=== PATIENT | female | born 1965 | race Caucasian/White ===

== ENCOUNTER 2023-09-05 06:33 | Inpatient (IN) | payer OTHER, SELFPAY ==
[2023-09-05] VITALS (50 sets, daily range): BP systolic 46–144; BP diastolic 33–118; PULSE 2–112; BMI 36.1
--- NOTE | 2023-09-05 03:37 | ED.GENMED ---
History of Present Illness
General
Chief Complaint: Breathing Problem
Source: patient
Exam Limitations: none
Time Seen by Provider: 09/05/23 03:33
Nursing documentation reviewed up to this point in time: agreed with
History of Present Illness
History of Present Illness:
This is a 58-year-old woman who complains of several day history of shortness of breath, cough, progressive over the past several days to week. She does admit to some chest pressure, somewhat worse with coughing. Chest pressure comes and goes over
the past few days.
She called her PCP and on Wednesday, September 02 she was started on prednisone, Tessalon Perles and Z-Obi. Despite these medications shortness of breath has persisted, much worse tonight prompting ED visit.
Upon arrival to the ED patient is in significant respiratory distress, tachypneic, mildly cyanotic.
Room air pulse ox 87%.
Immediately placed on 100% nonrebreather mask.
Her only daily medication is levothyroxine.
She continues to smoke cigarettes.
Past History
Past History
ED Past Medical History: Hypothyroidism
Social History
Tobacco: Smoker
Personal:
Living: with family
Family History
Family History: Other (Noncontributory)
Phy Exam
Physical Exam
Physical Exam:
GENERAL: This is a 58-year-old woman who appears somewhat older than stated age, awake and alert, appears in significant respiratory distress, tachypneic, able to speak in only few word sentences.
EYE: anicteric
NECK: Supple, nontender, no meningismus, no significant adenopathy. Moderate JVD.
ENT: oral mucosa is moist. No rhinorrhea.
CARDIAC: Irregularly irregular, tachycardic.
LUNGS: Significant respiratory distress with tachypnea, moderately decreased breath sounds throughout with fine expiratory wheezes bilaterally.
ABDOMEN: Rotund, soft, nondistended, without focal tenderness, normoactive BS.
NEUROLOGICAL: Alert and oriented x3, no focal neuro deficits.
SKIN: Cool and minimally diaphoretic, mild pallor with mild to moderate peripheral cyanosis, skin intact. No rash.
MUSCULOSKELETAL: No C/C/E. peripheral pulses are full and equal b/l. No palpable tenderness.
PSYCH: Moderately anxious related to shortness of breath, cooperative.
Scores
Heart Failure Risk
Heart Failure Risk Score: Yes
History of Stroke or TIA: No
History of intubation for respiratory distress: No
Heart rate on ED arrival >/= 110: Yes
SaO2 <90% on arrival on room air: Yes
HR >/=110 during 3min walk test (or too ill to perform test): Yes
ECG has acute ischemic changes: Yes
Urea >/=12mmol/L (BUN 33.6mg/dL): No
Serum CO2>/=35mmol/L: No
Troponin I or T elevated to DC Level (0.4mg/dL): No
NT-proBNP >/=5,000ng/L (5,000pg/ml): Yes
HF Risk Score: 6
Admission Status: VERY HIGH RISK 55.3% Consider admission to hospital
Course
Orders/Labs/Results
Orders:
Orders
09/05/23 03:34
Electrocardiogram (*1) Urgent
Reason for Study: Shortness of Breath
EKG- Treatment ONCE
CR Chest Portable - 1 View Urgent
Comment:
Reason For Exam: sob, hypoxia
Reason Study Needs to be Portable: Patient Unstable
09/05/23 03:49
Furosemide [Lasix] 80 mg IV NOW STA
Nitroglycerin 100 mg/250 ml [Nitroglycerin Premix] 100 mg in 250 ml IV NOW
Initial dose in mcg/min, then titrate:: 5
Titrate to keep:: SBP < 160 mmHg
Titrate by mcg/min:: 5 mcg/min, may increase by 10 mcg/min if dose > 20 mcg/min
Frequency of titrations (minutes):: every 3-5 minutes
Maximum dose in mcg/min:: 200
Begin to taper infusion when:: Remained at goal for 2hrs
Taper by mcg/min:: 5 mcg/min
Frequency of taper (minutes) if patient maintains goal:: 30
Taper to off?: Yes
If infusion off & no longer maintaining goal:: Contact Provider
09/05/23 03:56
Acetaminophen Urgent
Comment: ADD ON
Complete Blood Count/With Diff Urgent
Comprehensive Metabolic Panel Urgent
Glycohemoglobin (HgbA1c) Urgent
Lactic Acid Q4H
Comment: CANCEL 2nd LACTIC ACID IF 1st LACTIC ACID IS LESS THAN 2
Magnesium Urgent
NT-proBNP Urgent
PTT Urgent
TSH Reflex To Free T4 Urgent
Troponin I Urgent
09/05/23 04:05
ABG [Arterial Blood Gas] Urgent
%Oxygen/Room Air: 100% NRB
09/05/23 05:40
Admit/Transfer Patient As Directed
Co-Sign Provider:
Level of Care: Inpatient admission
Assign to:: IMU- Intermediate Care
Physician / Group: Hospitalist
Diagnosis: New Onset CHF
Reason for Hospitalization: Hypoxic respiratory failure
Expected length of stay greater than two midnights?: Yes
ELOS- Estimated Length of Stay in days: 2
I certify the patient meets the requirements for IP care: Yes
09/05/23 05:41
Code Status As Directed
Resuscitation Status: Full Code
09/05/23 05:45
Add On- LAB Stat
Tests Added?: Hemoglobin A1c
Add On- LAB Stat
Tests Added?: Magnesium level
09/05/23 05:50
Add On- LAB Stat
Tests Added?: acetaminophen level
09/05/23 07:45
Lactic Acid Q4H
Comment: CANCEL 2nd LACTIC ACID IF 1st LACTIC ACID IS LESS THAN 2
Abnormal Lab Results
09/05/23 09/05/23
03:56 04:05
WBC 19.7 H 10^3/uL
(4.8-10.8)
MCHC 32.6 L g/dL
(33.0-37.0)
RDW 14.6 H %
(11.5-14.5)
MPV 10.9 H fL
(7.4-10.4)
Abs Immat Gran (auto) 0.4 H 10^3/uL
(0-0.05)
Absolute Neuts (auto) 11.6 H 10^3/uL
(1.4-6.5)
Absolute Lymphs (auto) 6.3 H 10^3/uL
(1.2-3.4)
Absolute Monos (auto) 1.1 H 10^3/uL
(0.1-0.6)
Immature Gran % 2.1 H %
(0-0.5)
APTT 21.8 L Sec
(23.4-35.0)
pH 7.27 L
(7.35-7.45)
pCO2 44 H mmHg
(32-35)
pO2 157 H mmHg
(83-108)
HCO3 20.2 L mmol/L
(21-28)
ABG O2 Sat (Measured) 99.7 H %
(94-98)
Carbon Dioxide 19 L mmol/L
(22-30)
BUN 21 H mg/dl
(7-17)
Glucose 296 H mg/dl
(70-99)
Lactic Acid 4.6 H* mmol/L
(0.7-2.0)
AST 234 H U/L
(14-36)
ALT 128 H U/L
(0-35)
Acetaminophen < 10 L ug/ml
(10-30)
09/05/23 03:56
09/05/23 03:56
Vital Signs
Initial and Last Documented VS:
Initial Vital Signs
Pulse Resp BP Pulse Ox
154 36 144/111 82
09/05/23 03:32 09/05/23 03:32 09/05/23 03:32 09/05/23 03:32
Last Documented Vital Signs
Pulse Resp BP Pulse Ox
81 19 105/58 99
09/05/23 08:00 09/05/23 08:00 09/05/23 08:00 09/05/23 07:50
MDM/Problems Addressed
Differential Diagnosis Includes:
Patient presents with severe respiratory distress, cyanosis, hypoxia and immediately placed on 100% nonrebreather mask with prompt improvement in overall coloring, resolution of cyanosis but she continues with moderate tachypnea and increased work
of breathing.
Exam suspicious for acute CHF, other consideration is exacerbation of COPD, pneumonia, sepsis, ACS.
Nonrebreather mask transition to BiPAP with further improvement in respiratory distress and marked improvement in oxygenation.
Portable chest x-ray shows moderate cardiomegaly and generalized increased interstitial markings consistent with acute pulmonary edema.
She has been given an IV dose of Lasix and initiation of IV nitroglycerin for preload/afterload reduction.
Initial front desk monitor showed irregular irregular tachycardic rhythm consistent with atrial fibrillation with rapid ventricular response.
With improvement in oxygenation atrial fibrillation has spontaneously converted to sinus tachycardia.
Mild to moderate hypertension initially 144/111, hypertension is improving/normalized with improvement in respiratory distress.
EKG performed once stabilized shows sinus tachycardia, left bundle branch block. No old EKGs to compare.
Labs are pending.
Overall improving, has started to diurese.
Will admit to hospitalist service.
*Radiology
Radiology exam reviewed: preliminary read by ED provider (Chest x-ray shows cardiomegaly, interstitial edema consistent with CHF/pulmonary edema.)
*Pulse Oximetry
Patient hypoxic: yes
*EKG
Interpreted by ED Provider?: Yes
Interpretation: abnormal
Comparison EKG: no comparison EKG present
Rate: tachycardiac
Rhythm: sinus
Misenheimer: normal axis
QRS Pattern: left bundle branch block and poor R-wave progression
Ischemia: non-specific ST changes
*Documentation Designer Interpretation
Rate: tachycardiac
Interpretation: abnormal
Rhythm: a-fib
*Critical Care Note
Total Time (30-74mins, 75-104mins- exclusive of procedures): 45
comment:
Critical care statement: A total of 45 minutes of critical care time was provided for this patient. This includes management of unstable vital signs, evaluation of the patient at bedside, reviewing the patient's pertinent medical records, discussion
with consultants, review of old EKGs and review of pertinent medical records. This time with separate from time utilized to perform the aforementioned documented procedures
ED Attending Note
-
Portions of this chart may have been created with voice recognition software.� Occasional wrong word or��sound alike� substitutions may have occurred due to the inherent limitations of voice recognition software.
Discharge Plan
Departure
Patient Disposition: Admit
Date of Disposition: 09/05/23
Time of Disposition: 04:30
Admit to: IVU
Presentation/result/management discussed w/ accepting MD/DO: Hospitalist
Condition: Serious
Discharge Problem:
Acute respiratory failure with hypoxia and hypercapnia, Acute pulmonary edema, Paroxysmal atrial fibrillation with rapid ventricular response
Interventions
Interventions:
*Risk Screen - Suicide Last Done: 09/05/23 04:08
*General Assessment Last Done: 09/05/23 04:08
*Neglect/Abuse Screening Last Done: 09/05/23 04:08
ED- Fall Risk Assessment Last Done: 09/05/23 04:08
*ED COVID-19 Vaccine History Last Done: 09/05/23 04:08
ED- Cardiac Assessment Last Done: 09/05/23 04:08
ED- Pulmonary Assessment Last Done: 09/05/23 04:08
[2023-09-05] MEDS: LASIX 80 MG IV (04:01)
[2023-09-05] MEDS: NITROGLYCERIN PREMIX 250 IV (04:01)
[2023-09-05 04:07] LABS: % Basophils 0.5 % (0-2); % Eosinophils 0.9 % (0-6); % Immature Granulocytes 2.1 % (0-0.5); % Lymphocytes 32.1 % (20.5-51.1); % Monocytes 5.5 % (1.7-9.3); % Neutrophils 58.9 % (42.2-75.2); Absolute Basophils 0.1 10^3/uL (0-0.2); Absolute Eosinophils 0.2 10^3/uL (0-0.7); Absolute Immature Granulocytes 0.4 10^3/uL (0-0.05); Absolute Lymphocytes 6.3 10^3/uL (1.2-3.4); Absolute Monocytes 1.1 10^3/uL (0.1-0.6); Absolute Neutrophils 11.6 10^3/uL (1.4-6.5); Hematocrit 42.7 % (37.0-47.0); Hemoglobin 13.9 g/dL (12.0-16.0); Mean Corp Hgb Conc. 32.6 g/dL (33.0-37.0); Mean Corpuscular Hgb 30.4 pg (27.0-31.0); Mean Corpuscular Volume 93.4 fL (81.0-99.0); Mean Platelet Volume 10.9 fL (7.4-10.4); Nucleated Red Blood Cells % 0 %; Platelet Count 342 10^3/uL (130-400); Red Blood Cell Count 4.57 10^6/uL (4.20-5.40); Red Cell Dist. Width 14.6 % (11.5-14.5); White Blood Cell Count 19.7 10^3/uL (4.8-10.8)
[2023-09-05 04:16] LABS: B.E. -6.6 mmol/L; HCO3 20.2 mmol/L (21-28); O2 Saturation % 99.7 % (94-98); PCO2 44 mmHg (32-35); PO2 157 mmHg (83-108); pH 7.27 (7.35-7.45)
[2023-09-05 04:19] LABS: ALT (SGPT) 128 U/L (0-35); AST (SGOT) 234 U/L (14-36); Albumin 3.7 g/dl (3.5-5.0); Alkaline Phosphatase 111 U/L (38-126); Blood Urea Nitrogen 21 mg/dl (7-17); Calcium 8.7 mg/dl (8.4-10.2); Carbon Dioxide 19 mmol/L (22-30); Chloride 107 mmol/L (98-107); Estimated Creatinine Clearance 69 ml/min; Glucose 296 mg/dl (70-99); Potassium 3.9 mmol/L (3.5-5.1); Sodium 140 mmol/L (135-145); Total Bilirubin 0.6 mg/dl (0.2-1.3); Total Protein 6.7 g/dl (6.3-8.2); eGFR > 60.00
[2023-09-05 04:23] LABS: Lactic Acid 4.6 mmol/L (0.7-2.0)
[2023-09-05 04:32] LABS: NT-proBNP 8800 pg/ml; Troponin I 0.028 ng/ml
[2023-09-05 04:49] LABS: TSH Reflex To Free T4 1.84 uIU/ml (0.47-4.68)
[2023-09-05 04:58] LABS: APTT 21.8 Sec (23.4-35.0)
--- NOTE | 2023-09-05 05:16 | HPS.HSE ---
Family Physician
-
Family Physician: INTERVIEWE UNKNOWN - PT NOT
Chief Complaint
-
Shortness of breath
History of Present Illness
This is a 58-year-old female with only past medical history of hypothyroidism on Synthroid who presents to the emergency department with progressive shortness of breath that has been going on for weeks but rapidly worsened in the last few days.
She reported that she was seen in normal state of health up until about 2 months ago when she contracted COVID. Since then she has been having issues with her breathing. About 1 month ago she was diagnosed with COPD exacerbation and placed on
steroids. She did have improvement with steroid however symptoms began to deteriorate couple weeks ago. She reports dyspnea on exertion. She also reports having orthopnea and paroxysmal nocturnal dyspnea. She denied any lower extremity edema or
acute weight gain. Patient denies exertional chest pain. Denies palpitations, syncope, cold or heat intolerance. She reports mostly nonproductive cough which is unchanged from her baseline. She was started again on steroids at 40 mg 2 days ago
as well as azithromycin but had no improvement in her symptoms this time.
She was quite hypoxic and tachypneic on arrival in the emergency department with saturation in the low 80s on room air. Apparently came in with AFIB RVR with spontanous conversion to sinus tach. She was similarly placed placed on BiPAP. Initial
blood pressure was 144/111 with a pulse rate in the 110s. ECG shows sinus tachycardia at a rate of 120. She has a left atrial enlargement and nonspecific QRS prolongation. Initial troponin was 0.02. BNP was elevated at 8800. TSH was within
normal limits at 1.4. Chest x-ray shows reticular interstitial opacities bilaterally. Blood gas revealed pH of 7.27 pCO2 44. She had a white count of 19,000 stop chemistries were mostly unremarkable except for blood glucose of 296. Lactic acid
was elevated at 4.6. AST was elevated at 234 and ALT 128.
Medical History
Past Medical History
Past Medical History: Reports Hypothyroidism
Past Surgical History: Reports None
Social History
Tobacco: Smoker (/2 ppd)
Alcohol: None
Drug: None
Personal:
Living: With Family
Employment: Employed
Family History
Family History: Not pertinent
Allergies / Home Medications
Allergies reflects when Allergies were last updated in [employer].
Home Medications with original date entered in [employer]
Allergy/Medication List:
Allergies
Allergy/AdvReac Type Severity Reaction Status Date / Time
Penicillins Allergy Unknown Verified 09/05/23 03:37
Levothyroxine 175 mcg po daily
Review of Systems
-
History Source: Patient
Constitutional: Reports No Symptoms
EENT: Reports No Symptoms
Respiratory: Reports Cough and Trouble Breathing
Cardiac: Reports See HPI
Abdomen/GI: Reports No Symptoms
: Reports No Symptoms
Musculoskeletal: Reports No Symptoms
Skin: Reports No Symptoms
Neurological: Reports No Symptoms
Endocrine: Reports No Symptoms
Hematologic/Lymphatic: Reports No Symptoms
Psych: Reports No Symptoms
Physical Exam
Vital Signs
Vital Signs
Pulse Resp BP Pulse Ox
94 17 80/46 96
09/05/23 05:01 09/05/23 05:01 09/05/23 04:45 09/05/23 05:01
Physical Exam
General: Well Developed, Well Nourished, Respiratory Distress and Obese
HEENT: NormoCephalic, Moist mucous membranes, Atraumatic, PERRLA and Oxygen
Respiratory: Crackles (faint bibasilar crackles)
Cardiac: S1/S2 and Tachycardia
Breast: Deferred by me
GI: Soft, Non Tender, Non Distended and Normal Bowel Sounds
Rectal: Deferred by Provider
Genito-urinary: Clear Urine
Musculoskeletal: No Clubbing, No Cyanosis and No Edema
Skin: Warm and Dry
Neuro: AO x 3
Hematologic/Lymphatic: No Lymphadenopathy
Psych: Calm
Laboratory Results
-
09/05/23 03:56
09/05/23 03:56
Laboratory Results
APTT 21.8 Sec (23.4-35.0) L 09/05/23 03:56
pH 7.27 (7.35-7.45) L 09/05/23 04:05
pCO2 44 mmHg (32-35) H 09/05/23 04:05
pO2 157 mmHg (83-108) H 09/05/23 04:05
HCO3 20.2 mmol/L (21-28) L 09/05/23 04:05
Lactic Acid 4.6 mmol/L (0.7-2.0) H* 09/05/23 03:56
Total Bilirubin 0.6 mg/dl (0.2-1.3) 09/05/23 03:56
AST 234 U/L (14-36) H 09/05/23 03:56
ALT 128 U/L (0-35) H 09/05/23 03:56
Alkaline Phosphatase 111 U/L (38-126) 09/05/23 03:56
Troponin I 0.028 ng/ml 09/05/23 03:56
Data Reviewed
-
Diagnostic Radiology: Image Personally Visualized and interpreted
Medical Tests (Nuc Med, Echo, EKG etc): Image Personally Visualized and interpreted
Lab Data: Labs Reviewed by me
Impression/Plan
-
IMPRESSION:
PLAN:
1. Hypoxic respiratory failure -patient has history of tobacco use, refuses no diagnosis of COPD, diagnosed with COVID about 2 months ago and has been having respiratory symptoms since with 1 episode of treatment for COPD exacerbation on steroids
and then development of worsening dyspnea on exertion, shortness of breath orthopnea PND over the last few days with initiation of steroids and azithromycin 2 days ago and no improvement in symptoms coming in with hypoxic respiratory failure
requiring BiPAP. Evidence suggest acute pulmonary edema of uncertain etiology with BNP consistent with cardiomyopathy. Troponin is negative so likely nonischemic cardiomyopathy. No murmurs appreciated on auscultation but cannot rule out acute
valvular insufficiency. Initial supraventricular tachycardia but improved with respiratory support and now in sinus rhythm.
- admit to IMU
- lasix 40 mg iv bid for now
- echo in am to eval for pericardial disease, cardiomyopathy or valvular insufficiency
- depending on ECHO may need additional ischemic w/u
- trialed on nitroglycerin in ED with subsequent hypotension, holding off nitro
- hold off on beta blockade and other medical therapies for now until SBP improved
- monitor for sleep apnea
- cardiology consultation
2. Leukocytosis- WBC 19K. No fever, no new productive cough, no acute focal consolidation. Recent steroids.
- monitor for now.
3. COPD - Patient with 1/2 ppd smoking hx for several years. No diagnosis of COPD and was told she did not have COPD after her COVID admission. Treated for bronchitis recently which possibly reflected CHF. No wheezing currently.
- discontinue steroids for now
- prn nebs if wheezing
- check peak flow when tolerating room air
4. Hypothyroid - TSH normal at 1.8 today
- continue levothyroxine 175mcg
5. Hyperglycemia -
- check a1c, diabetic diet for now
- low dose sliding scale insulin
- check lipid panel
6. Transaminitis - suspect hepatic congestion vs fatty liver. Denies any ETOH use. Denies acetaminophen use.
- RUQ u/s
- lipid panel as above
DVT PPX - lovenox sq
Full Code
[2023-09-05 06:24] LABS: Acetaminophen < 10 ug/ml (10-30); Magnesium 1.9 mg/dl (1.6-2.3)
--- NOTE | 2023-09-05 08:25 | W.PN.HOSP.TC ---
Today's Communication/Plan
-
CT PE Study
Trop
Pressors
ECHO
Cardiology and Pulm eval
Assessment / Plan
Assessment / Plan
58-year-old female present to the ER with shortness of breath she had COVID 2 months ago since then she has been having issues with breathing. A month ago she was diagnosed with COPD exacerbation and placed on steroids. She had some improvement
however started having more symptoms a couple weeks ago. Has orthopnea, also dyspnea on exertion. Denies any edema she also has a cough. 2 days ago she was started on steroids by her primary along with azithromycin. She was not getting better
came to the ER. I saw her in a rapid response this morning as she had decreased blood pressure and also upper back pain. Patient was placed on BiPAP in the ER she was also in atrial fibrillation on arrival. Then spontaneously converted to sinus
rhythm elevated proBNP noted on admission. LFTs were also elevated. Denies any abdominal pain
On examination patient is on BiPAP
States that she does not have any pain at that moment
She states she always has back pain from her spine issues was trying to get comfortable. Blood pressure is in upper 80s
Denies any abdominal pain
Cardiovascular system S1-S2 appreciated, short systolic murmur at apex
Decreased breath sounds bilaterally but mostly clear
Abdomen soft and nontender no right upper quadrant tenderness
No pedal edema noted
Patient is obese
Neuro Exam is mostly nonfocal.
EKG reviewed by me-sinus tachycardia left atrial enlargement old septal infarct
# Acute hypoxic respiratory failure
Requiring BiPAP on admission.
Chest x-ray reviewed by me-mild pulmonary edema
Elevated proBNP noted. Troponin is negative
CT PE study urgent
With hypotension hold off on Lasix
Echo
Trend troponin
Hold off further nitroglycerin because of hypotension
Hold off on beta-blockers because of hypotension
Cardiology and pulmonary evaluations requested
# New onset atrial fibrillation in the ER reportedly-currently sinus rhythm
# Leukocytosis likely secondary to recent steroids
# Lactic acidosis likely secondary to hypotension-normalized
# Hypotension likely secondary to nitroglycerin and Lasix
Pressors started
Monitor blood pressure
Avoid any medicines which would cause hypotension
# COPD active smoker half a pack a day still
Cessation counseling cannot rule out COPD exacerbation
Continue steroids, nebulizer treatments
# History of asthma
# Hypothyroidism-continue levothyroxine 175 mcg daily
# Hyperglycemia check hemoglobin A1c
May have underlying diabetes
Accu-Cheks and sliding scale coverage
# Transaminitis
Tylenol level less than 10
No right upper quadrant tenderness, denies any alcohol use
Routine ultrasound
Hepatitis panel if it does not trend down
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
#Enlarged portacaval lymph node measuring 1.1 x 1.6 cm in size.
Mild amount of left-sided retroperitoneal lymphadenopathy with lymph nodes measuring up to 0.8 x 1.1 x 1.9 cm in size.
# Obesity per BMI criteria
# DVT prophylaxis-Lovenox subcutaneously
# Full code
Discussed with ER staff
CC time - Rapid response time evaluating the patient, placing orders, ordering labs, CT, reviewing with consultants, discussing with ER staff, reviewing radiology- 37 min
Anticipated Discharge: > 48 hours
Subjective/Interval History
-
Date of Service: September 05, 2023
Objective Data
-
Labs:
Laboratory Results
09/05/23 09/05/23
03:56 04:05
WBC 19.7 H
Hgb 13.9
Hct 42.7
Plt Count 342
APTT 21.8 L
HCO3 20.2 L
Sodium 140
Potassium 3.9
Chloride 107
Carbon Dioxide 19 L
BUN 21 H
Creatinine 0.9
Glucose 296 H
Calcium 8.7
Total Bilirubin 0.6
AST 234 H
ALT 128 H
Alkaline Phosphatase 111
Vital Signs:
Vital Signs
Pulse Resp BP Pulse Ox
81 19 105/58 99
09/05/23 08:00 09/05/23 08:00 09/05/23 08:00 09/05/23 07:50
[2023-09-05 08:38] LABS: Lactic Acid 1.6 mmol/L (0.7-2.0)
[2023-09-05 09:15] LABS: Troponin I 0.254 ng/ml
[2023-09-05] MEDS: LASIX 40 MG IV (09:47)
--- NOTE | 2023-09-05 09:56 | CON.INTV ---
Consultation
Consultation Request
Date/Time Consultation Requested: 09/04
Date/Time Consultation Performed: 09/04
Reason for Consultation: Hypoxia, chest pain
Medical History
-
History of Present Illness:
History obtained mainly from the chart and also from the patient. Patient is currently on a BiPAP machine. She is a 58-year-old female with history of hypothyroidism and ongoing smoking. She also had Covid 2 months ago. She was told she had COPD
by her primary physician and was treated with steroids. Her symptoms have progressed. Throughout this she denies chest pain, nausea, abdominal pain, lightheadedness, dizziness, falls, syncope. She does complain of back pain. Upon arrival to
[facility], heart rate 150s, breathing at 36, blood pressure 144/111, 82%. Patient presented in severe respiratory distress requiring 100% nonrebreather with improvement of cyanosis. She had crackles on exam. Chest x-ray suggested
possible heart failure. Patient was transition to BiPAP therapy. She was given a dose of IV Lasix and IV nitroglycerin. This was followed by hypotension. Nitroglycerin was discontinued. Patient was admitted to IMU.
Presently, patient is feeling better. She appears to be comfortable. Of note she is lying essentially flat for her echocardiogram which is being completed at this time
She has not seen a drainage engineer
She has been treated with steroids and antibiotics intermittently over the last year for COPD
.
PMH: Hypothyroidism. Patient was told she may have asthma or COPD per primary physician.
Past Medical History
Past Medical History: None (See above)
Past Surgical History: None (See above)
Social History
Tobacco: Smoker (Continues to smoke, suspected [id number], 1 pack a day)
Alcohol: None
Drug: None
Personal:
Living: With Family
Employment: Employed
Family History
Family History: Unable to Obtain
Allergies / Home Medications
Allergies
Allergy/AdvReac Type Severity Reaction Status Date / Time
Penicillins Allergy Unknown Verified 09/05/23 03:37
Review of Systems
-
All other systems: Negative unless noted
Vitals / Labs / Diagnostic Testing
Vital Signs
Pulse Resp BP Pulse Ox
77 17 99/63 94
09/05/23 09:30 09/05/23 09:30 09/05/23 09:16 09/05/23 09:00
Lab Data
09/05/23 03:56
09/05/23 03:56
Laboratory Results
09/05/23 09/05/23
03:56 04:05
APTT 21.8 L
pH 7.27 L
pCO2 44 H
pO2 157 H
HCO3 20.2 L
O2 Delivery Level
Diagnostic Testing:
Physical Exam
-
HEENT: Normocephalic and Anicteric
Cardiovascular: S1/S2, Regular Rhythm, Murmur (n), Rub (n) and Peripheral Edema (n)
Respiratory: Wheeze (Mild expiratory), Rales (Few bibasilar), Rhonchi (n) and Non-Labored Respirations (On BiPAP)
GI: Soft, Non Distended and Non Tender
Neurology: Awake, Alert and No Motor Deficits (Moves extremities)
Skin: Good Color (No clubbing, cyanosis)
General: Comfortable
Assessment
-
58-year-old female with history of childhood asthma, ongoing smoking, hypothyroidism who presents with progressive shortness of breath, back pain. Upon reviewing her outpatient records, she has had issues with recurrent upper respiratory
infections, wheezing, nocturnal coughs and PND. She has been treated multiple times for asthma and COPD exacerbations per her primary. Her recent outpatient visit 09/03/2023, chest exam was clear. She now presents with back pain, hypoxia,
hypertension. Chest x-ray suggest heart failure per my review. She then developed hypotension following Lasix and nitroglycerin. We are asked to help from pulmonary/critical care standpoint 09/05/2023
Acute hypoxic respiratory insufficiency, 82% on room air
Requiring BiPAP
Acute hypercapnic respiratory insufficiency, requiring BiPAP
Bilateral interstitial changes
Heart failure versus interstitial process
Left bundle branch block, per EKG
Chronicity unclear
Elevated troponin
Recent recurrent COPD/asthma exacerbation, treated by primary physician
Steroids/antibiotics
Leukocytosis, on recent steroids per primary
Hyperglycemia
Moderate emphysema, per CT chest
Right apical nodular abnormality
Conditions present prior to admission
Suspected COPD
History of childhood asthma
Hypothyroidism
40 pack-year history of smoking, ongoing
Plan/recommendations
At this time, clinical status is tenuous
Hypotension noted, occurred after Lasix/nitroglycerin per ED
Patient is presently without chest pain
Left bundle branch block per EKG is noted
Chest x-ray per my review suggests heart failure
No clear interstitial process per CT imaging
No obvious PE
Moving forward
Although patient does have mild to moderate emphysema per CT chest send mild wheezing on exam, I am not convinced this is pulmonary
Her back pain is since resolved
CT chest per my review without any obvious pneumonitis
Right upper lobe scattered nodules are noted, small
No evidence of aortic dissection
Left bundle branch block per EKG noted
Await echocardiogram
Suspect possible cardiac etiology
Cardiology is following
Patient feels symptoms have improved
Would give 1 dose of aspirin x 1
Await cardiology evaluation
Reviewed with patient, primary service
Will follow
--- NOTE | 2023-09-05 10:50 | W.PN.UPDATE ---
Update Note
Progress Note Update
CT noted
Mild elevation in trop. If trending up needs AC
ASA started -Agree
Nebs QID
Add Doxy
Follow trop
[2023-09-05 11:17] LABS: Glycohemoglobin (HgbA1c) 5.6 % (4.0-5.6)
[2023-09-05] MEDS: DUONEB 3 ML INH ×3 (11:33→20:13)
[2023-09-05] MEDS: LOW STRENGTH ASPIRIN 81 MG PO (11:36)
[2023-09-05] MEDS: VIBRAMYCIN 100 MG PO ×2 (11:36→20:59)
--- NOTE | 2023-09-05 13:23 | CON.CAR ---
Addendum entered and electronically signed by Ulisses Crews DO 09/05/23 14:19:
Addendum:
Regarding A-fib, no documented strips available for review regarding timing duration or prior history. At this time, monitor patient on telemetry for further recurrence.
Original Note:
Consultation
Consultation Request
Date/Time Consultation Requested: 09/05/202325
Date/Time Consultation Performed: 09/05/2023 0945
Requesting Provider: Garry Lundberg MD
Performing Provider: Ulisses Crews DO
Reason for Consultation: Dyspnea, ?HF
Medical History
-
Chief Complaint: SOB
History of Present Illness:
Patient is a pleasant 58-year-old female with a past medical history significant for tobacco use disorder, hypothyroidism who presents with shortness of breath. Patient reports that starting in May, she contracted COVID-19 yielding profound
shortness of breath with minimal activity and exertion. During that time, she was febrile however that has since resolved. Since May, she notes that she has had persistently significant shortness of breath with minimal activity and exertion.
She notes that she was seen by her primary recently and was started on steroids and azithromycin but her symptoms did not improve. She notes noncontributory productive cough which has been unchanged from her baseline. Additionally, she notes PND
and orthopnea. She denies chest pain, lightheadedness, dizziness, near-syncope, syncope, palpitations, or weakness. In the emergency department, she was noted to be hypoxic and tachypneic with oxygen saturation as low as 80% on room air. It was
reported that she had brief AF RVR however EKGs are not available, EKG demonstrated sinus tachycardia. Patient placed on BiPAP which improved her respirations. Patient was given nitroglycerin which caused mild hypotension but has since improved.
Initial lab work demonstrated troponin of 0.02, BNP 8800, TSH normal. Chest x-ray demonstrated reticular opacities bilaterally and a blood gas demonstrated a pH of 7.27 with a CO2 of 44 and a leukocytosis of 19,000. Lactic acid initially 4.6 AST
and ALT ALT also elevated at 234 and 128 respectively.
Past Medical History
Past Medical History: None (See HPI)
Past Surgical History: None
Social History
Tobacco: Smoker
Alcohol: None
Drug: None
Personal:
Living: With Family
Employment: Employed
Family History
Family History: Reviewed & Not Pertinent
Allergies / Home Medications
Allergy/AdvReac Type Severity Reaction Status Date / Time
Penicillins Allergy Unknown Verified 09/05/23 03:37
Review of Systems
-
History Source: Patient
Constitutional: No Symptoms
EENT: No Symptoms
Respiratory: Cough, Trouble Breathing and Other (PND, Orthopnea)
Cardiac: No Symptoms
Abdomen/GI: No Symptoms
: No Symptoms
Musculoskeletal: No Symptoms
Skin: No Symptoms
Neurological: No Symptoms
Endocrine: No Symptoms
Hematologic/Lymphatic: No Symptoms
Physical Exam
Vital Signs
Pulse Resp BP Pulse Ox
77 13 99/63 94
09/05/23 11:43 09/05/23 11:43 09/05/23 09:16 09/05/23 11:43
Lab Results
09/05/23 03:56
09/05/23 03:56
Troponin I 0.254 ng/ml H* D 09/05/23 08:21
Sof-X-Crkbuzatlua Pept 8800 pg/ml 09/05/23 03:56
Physical Exam
General: Well Developed, Well Nourished and Other (on BIPAP, no resp distress, comfortable)
HEENT: Normocephalic and Anicteric
Respiratory: Crackles, Non Labored Respirations and Other (no wheeze or rhonchi)
Cardiac: S1/S2, Regular Rhythm and Other (no murmur, rub, or gallops)
Breast: Deferred by me
GI: Soft, Non Tender, Non Distended and Normal Bowel Sounds
Rectal: Deferred by Provider
Musculoskeletal: No Clubbing, No Cyanosis and No Edema
Skin: Warm and Dry
Neuro: Awake, Alert and Oriented
Psych: Calm
Impression / Plan
-
[facility]: Dr. David Warren, DO (Last OV 09/16/2011)
.
TTE 06/2010 EF 50%, trace MR, mild TR
Lexiscan MPI 06/2010 fixed defect consistent with soft tissue attenuation per report
.
Impression:
Acute respiratory failure requiring BiPAP, multifactorial, improved on BiPAP
� Hypercapnic, hypoxic
� BNP 8800, troponin 0.028
� WBC 19, lactic acid 4.6, improved to 1.6
� EKG sinus tachycardia IVCD
� CT no PE, moderate emphysema, minor patchy opacities bilateral upper lobe suspicious for superimposed pneumonitis
COPD/emphysema
Mixed dyslipidemia
Bundle-branch block/IVCD
Continuous tobacco use disorder
PAF in the setting of above
Hypothyroidism
Recommendations:
� 2D echocardiogram to assess cardiac size, shape, function, and valvular anatomy in the setting of hypoxic respiratory failure
� Trend troponin to peak, if increasing, recommend initiation of anticoagulation
� Agree with aspirin 81 mg
� Pending results from echocardiography, if abnormal, recommend patient undergo left and right heart catheterizations when clinically stable
� Treatment for underlying infectious etiology per pulm/primary service
Discussed with nursing, discussed with hospitalist
Data Reviewed
-
EKG: Tracing Personally Visualized and interpreted
Radiology: Report Reviewed by me
CT Scan: Report Reviewed by me
Ultrasound: Report Reviewed by me
Medical Tests (Nuc Med, Echo etc): Report Reviewed by me
Labs: Labs Reviewed by me
Old Records: Reviewed
[2023-09-05] MEDS: HEPARIN 4000 UNITS IV (15:16)
[2023-09-05] MEDS: HEPARIN 25000 UNITS/250 ML IV (15:17)
[2023-09-05 21:25] LABS: Troponin I 0.199 ng/ml
[2023-09-05 22:11] LABS: APTT 31.3 Sec (23.4-35.0)
[2023-09-05] MEDS: LIDOCAINE 4% PATCH 1 PATCH TOPICAL (23:10)
[2023-09-06] VITALS (25 sets, daily range): BP systolic 71–119; BP diastolic 46–91; BMI 33.4
[2023-09-06] MEDS: SYNTHROID PO (05:39)
[2023-09-06 05:41] LABS: Hematocrit 38.3 % (37.0-47.0); Hemoglobin 12.8 g/dL (12.0-16.0); Mean Corp Hgb Conc. 33.4 g/dL (33.0-37.0); Mean Corpuscular Volume 89.7 fL (81.0-99.0); Mean Platelet Volume 10.7 fL (7.4-10.4); Platelet Count 233 10^3/uL (130-400); Red Blood Cell Count 4.27 10^6/uL (4.20-5.40); Red Cell Dist. Width 14.6 % (11.5-14.5); White Blood Cell Count 8.9 10^3/uL (4.8-10.8)
[2023-09-06 05:53] LABS: ALT (SGPT) 108 U/L (0-35); AST (SGOT) 53 U/L (14-36); Albumin 3.6 g/dl (3.5-5.0); Alkaline Phosphatase 115 U/L (38-126); Blood Urea Nitrogen 20 mg/dl (7-17); Calcium 8.8 mg/dl (8.4-10.2); Carbon Dioxide 30 mmol/L (22-30); Chloride 101 mmol/L (98-107); Direct Bilirubin 0.3 mg/dl (0.0-0.4); Estimated Creatinine Clearance 66 ml/min; Glucose 108 mg/dl (70-99); HDL Cholesterol 50 mg/dl; LDL Cholesterol, Calculated 99 mg/dl; Potassium 3.6 mmol/L (3.5-5.1); Sodium 137 mmol/L (135-145); Total Bilirubin 0.5 mg/dl (0.2-1.3); Total Cholesterol 171 mg/dl (50-199); Total Protein 6.6 g/dl (6.3-8.2); Triglyceride 110 mg/dl (10-149); Very Low Density Lipoprotein 22 mg/dl (0-30); eGFR > 60.00
--- NOTE | 2023-09-06 06:25 | W.PN.HOSP.TC ---
Today's Communication/Plan
-
.
Assessment / Plan
Assessment / Plan
58-year-old female present to the ER with shortness of breath she had COVID 2 months ago since then she has been having issues with breathing. A month ago she was diagnosed with COPD exacerbation and placed on steroids. She had some improvement
however started having more symptoms a couple weeks ago. Has orthopnea, also dyspnea on exertion. Denies any edema she also has a cough. 2 days ago she was started on steroids by her primary along with azithromycin. She was not getting better
came to the ER. I saw her in a rapid response this morning as she had decreased blood pressure and also upper back pain. Patient was placed on BiPAP in the ER she was also in atrial fibrillation on arrival. Then spontaneously converted to sinus
rhythm elevated proBNP noted on admission. LFTs were also elevated. Denies any abdominal pain
Physical Exam
General: Well Developed, Well Nourished, Respiratory Distress and Obese
HEENT: Normocephalic, Moist mucous membranes, Atraumatic, PERRLA and Oxygen
Respiratory: No wheezes.
Cardiac: S1/S2
GI: Soft, Non Tender, Non Distended and Normal Bowel Sounds
Rectal: No rectal bleeding
Genito-urinary: Clear Urine
Musculoskeletal: No Clubbing, No Cyanosis and No Edema
Skin: Warm and Dry
Neuro: AO x 3
Hematologic/Lymphatic: No Lymphadenopathy
Psych: Calm
# Acute hypoxic respiratory failure with respiratory distress
Requiring BiPAP on admission.
No sob now, not in distress, on Nasal O2
Chest x-ray c/w mild pulmonary edema
Elevated proBNP noted. Troponin is negative
CT Chest , no PE
Echo 09/04 showed LVEF 20 to 25%, mild concentric LVH, septal dyskinesis, stage I diastolic dysfunction, mild MR, trace TR, normal right ventricular.
Trend troponin, mild elevation
# Cardiogenic shock
Mild
Held Lasix
Improving
# Non- ST elevation UT
No chest pain
c/w IV heparin
NPO for Cardiac cath
c/w aspirin
Appreciate cardiology input
# New onset atrial fibrillation in the ER reportedly-currently sinus rhythm
# Leukocytosis likely secondary to recent steroids
# Lactic acidosis likely secondary to hypotension-normalized
# COPD active smoker half a pack a day still
Cessation counseling cannot rule out COPD exacerbation
Continue steroids, nebulizer treatments
Appreciate pulmonary help
# History of asthma
# Hypothyroidism-continue levothyroxine 175 mcg daily
# Hyperglycemia check hemoglobin A1c
May have underlying diabetes
Accu-Cheks and sliding scale coverage
# Transaminitis
Tylenol level less than 10
No right upper quadrant tenderness, denies any alcohol use
Routine ultrasound
Hepatitis panel if it does not trend down
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
#Enlarged portacaval lymph node measuring 1.1 x 1.6 cm in size.
Mild amount of left-sided retroperitoneal lymphadenopathy with lymph nodes measuring up to 0.8 x 1.1 x 1.9 cm in size.
# Obesity per BMI criteria
# DVT prophylaxis-Lovenox subcutaneously
# Full code
Total time spent to see the patient, examine the patient on the floor, review data and lab results, discuss treatment plan with patient and nursing staff around 55 minutes
Anticipated Discharge: > 48 hours
Subjective/Interval History
-
Date of Service: September 06, 2023
Slept well
No chest pain
No sob
Objective Data
-
Labs:
Laboratory Results
09/05/23 09/05/23 09/05/23
13:52 20:52 21:51
WBC Cancelled
Hgb Cancelled
Hct Cancelled
Plt Count Cancelled
APTT Cancelled Cancelled 31.3
Sodium
Potassium
Chloride
Carbon Dioxide
BUN
Creatinine
Glucose
Calcium
Total Bilirubin
AST
ALT
Alkaline Phosphatase
09/06/23 09/06/23 09/06/23
05:15 11:15 12:00
WBC 8.9
Hgb 12.8
Hct 38.3
Plt Count 233 D
APTT 73.0 H Pending Cancelled
Sodium 137
Potassium 3.6
Chloride 101
Carbon Dioxide 30
BUN 20 H
Creatinine 0.9
Glucose 108 H
Calcium 8.8
Total Bilirubin 0.5
AST 53 H
ALT 108 H
Alkaline Phosphatase 115
Vital Signs:
Vital Signs
Temp Pulse Resp BP Pulse Ox
98.7 F 78 14 103/87 94
09/06/23 04:21 09/06/23 05:00 09/06/23 05:00 09/06/23 05:00 09/06/23 05:00
I&O
09/04/23 09/05/23 09/06/23
06:59 06:59 06:59
Output Total 2149
Balance -2149 / -2149
--- NOTE | 2023-09-06 07:34 | PTCARENOTE ---
Heparin drip infusing at 1200 units 12 mls/hr via left AC IV. Patient remains NPO for cardiac cath today.
[2023-09-06] MEDS: DUONEB 3 ML INH ×3 (07:48→19:35)
--- NOTE | 2023-09-06 09:38 | W.PN.PUL3 ---
Today's Communication / Plan
-
For cath today for new cardiomyopathy, ECHO reviewed, EF 20-25%
Cards following
We discussed her possible COPD and confirmed emphysema on CT, she will need outpatient pulmonary FU
Likely will need home O2 eval
Smoking cessation discussed as well, she has declined NRT
Follow up pending results of cath
Assessment
-
58-year-old female with history of childhood asthma, ongoing smoking, hypothyroidism who presents with progressive shortness of breath, back pain. Upon reviewing her outpatient records, she has had issues with recurrent upper respiratory
infections, wheezing, nocturnal coughs and PND. She has been treated multiple times for asthma and COPD exacerbations per her primary. Her recent outpatient visit 09/03/2023, chest exam was clear. She now presents with back pain, hypoxia,
hypertension. Chest x-ray suggest heart failure per my review. She then developed hypotension following Lasix and nitroglycerin. We are asked to help from pulmonary/critical care standpoint 09/05/2023
Acute hypoxic respiratory insufficiency, 82% on room air
Acute hypercapnic respiratory insufficiency, requiring BiPAP
Bilateral interstitial changes
Acute systolic congestive HF, new cardiomyopathy w/ reduced EF 20-25%
Left bundle branch block, per EKG, chronicity unclear
Elevated troponin
Recent recurrent COPD/asthma exacerbation, recent abx/steroids treated by primary physician
Leukocytosis, on recent steroids per primary
Hyperglycemia
Moderate emphysema, per CT chest
Right apical nodular abnormality
Conditions present prior to admission
Suspected COPD
History of childhood asthma
Hypothyroidism
40 pack-year history of smoking, ongoing
Plan/recommendations
At this time, clinical status is tenuous
on 4L NC, may need home O2 eval eventually
Hypotension noted, occurred after Lasix/nitroglycerin per ED
Patient is presently without chest pain
Left bundle branch block per EKG is noted
Chest x-ray per my review suggests heart failure, ECHO confirms new CM EF 20-25%
For cath today
Cards following
Imaging reviewed
No clear interstitial process per CT imaging
Right upper lobe scattered nodules are noted, small
No obvious PE
Mild to moderate emphysema per CT chest, COPD is also suspected
She has never seen pulmonary in past
We discussed need for outpatient FU with PFTs for this
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
Smoking cessation discussed, she has declined NRT
Lung cancer screening is indicated in this patient
Outpatient pulmonary FU recommended, PFTs/6MWT
Reviewed with patient, primary service
Diagnostic Data
CXR 09/05/23: Mild interstitial pulmonary edema.
CT chest 09/05/23- 1. No CTA evidence for an acute pulmonary thromboembolism.
2. Moderate centrilobular emphysema.
3. Minor patchy opacities in the bilateral upper lobe suspicious for superimposed mild pneumonitis.
ECHO 09/05/23: Left ventricle is mildly dilated. Severely reduced left ventricular systolic function. Left ventricular ejection fraction is 20-25% by Hidalgo's method. Global hypokinesis. Septal dyskinesis related to IVCD. Mild concentric left
ventricular hypertrophy. Stage I diastolic dysfunction suggestive of abnormal relaxation. Normal right ventricular size. Normal right ventricular systolic function. Normal atria. Mild mitral regurgitation. Trace tricuspid regurgitation. Estimated
pulmonary artery pressure of 25-30 mmHg. Assuming a right atrial pressure of 8 mmHg. Trace pulmonic regurgitation. Normal pericardium without effusion. No pleural effusion present. The aortic root is normal in caliber. Suboptimal suprasternal notch
view. Color flow pattern suggestive of small PFO. The IVC is of normal size but does not demonstrate normal respiratory variation. No intracardiac mass or thrombus formation seen. No prior study for comparison.
Subjective Data
-
Date of Service:
Date of Service: September 06, 2023
Chief Complaint: Pulmonary Follow Up
Subjective:
remains stable today, no new complaints
on 4L nc, not on home o2 prior
for cath today
Objective Data
Data Reviewed
Vital Signs / I&O / Oxygen:
Vital Signs
Temp Pulse Resp BP Pulse Ox
98.3 F 83 20 119/66 93
09/06/23 07:42 09/06/23 07:52 09/06/23 07:52 09/06/23 07:00 09/06/23 07:52
Intake and Output
09/05/23 09/06/23 09/07/23
06:59 06:59 06:59
Output Total 2149 / 2149
Balance -2150 / -2149
SaO2 93
Nasal Cannula flow liters per 4
minute
Physical Exam
General: Comfortable, Good Appetite and Other (NAD)
HEENT: Normocephalic, Anicteric and Moist Mucous Membranes
Cardiovascular: S1-S2 and Regular Rhythm
Respiratory: Clear and Non-Labored Respirations
GI: Soft, Non Distended and Non Tender
Neurology: Awake, Alert, Oriented, AO x 3 and No Motor Deficits
Skin: Warm, Dry and Good Color
Labs/Micro/Reports
Lab Data
09/06/23 05:15
09/06/23 05:15
Laboratory Results
09/05/23 09/05/23 09/05/23
13:52 20:52 21:51
APTT Cancelled Cancelled 31.3
09/06/23 09/06/23
05:15 12:00
APTT 73.0 H Cancelled
[2023-09-06] MEDS: DUONEB INH (11:01)
--- NOTE | 2023-09-06 11:15 | PTCARENOTE ---
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 Heparin drip off.
--- NOTE | 2023-09-06 12:40 | PTCARENOTE ---
Received patient from can labeler. Patient awake and alert. Right radial T-band site with weak but present pulse, warm with good CMS. Right brachial dressing C/D/I. Will begin to remove air at 1315. Patient denies any pain or discomfort VS stable.
Sp02 95% 4L o2. SR on monitor.
--- NOTE | 2023-09-06 12:53 | ITS.CL.CATH ---
[facility] - Catheterization
Cardiac Catheterization
Procedure Report:
RIGHT AND LEFT HEART STUDY
Date of Procedure: September 06, 2023
Referring: Dr. Ulisses Crews
PROCEDURES:
1. Right heart catheterization
2. Left heart catheterization with coronary and single-plane left ventriculography
INDICATION: Shortness of breath with newly diagnosed LV dysfunction
ACCESS: Right radial artery, 6 Libyan sheath in right brachial vein, 6 Libyan sheath
HEMODYNAMICS : mmHg
RA (m) : 22
RV (s/d) : 41/11, 17
PA (s/d, m) : 47/27, 31
PCWP (m) : 32
AO (s/d, m) : 113/54, 76
LV (s/d) : 116/17
LVEDP : 28
Estimated [facility] Cardiac Output: 4.2 L / min and Cardiac Index: 2.3 L/ min / m-2
Systemic vascular resistance: 12.9 Wood units or 1028.6 zxpmd-[id number]-py(-5)
Pulmonary vascular resistance: 0.3 Wood units or 19 cuhtt-oqs-kv(-5)
CORONARY FINDINGS :
Dominance: Right
LEFT MAIN: Normal
LEFT ANTERIOR DESCENDING: The LAD arises normally from the left main and runs in the anterior interventricular groove supplying several small to medium caliber diagonal branches. The mid LAD has minor luminal irregularities but no focal obstructive
stenosis
CIRCUMFLEX: The circumflex is a medium caliber nondominant vessel that supplies a single sizable obtuse marginal branch. The circumflex and obtuse marginal branch are widely patent
RIGHT CORONARY ARTERY: The right coronary artery is a dominant vessel that is widely patent. The PDA is a medium caliber vessel that is widely patent. The posterolateral branch is widely patent
VENTRICULOGRAPHY: Left ventriculography was performed in an COKER projection. The digital single-plane left ventricular ejection fraction is visually estimated at 15-20%. The ventricle is globally hypokinetic
RADIATION SUMMARY: Fluoro Time (min): 3.7, Dose (mGy): 271.8, DAP (Gy.cm2) : 21.3
CONCLUSIONS
1. Nonischemic dilated cardiomyopathy
2. Nonobstructive coronary disease
RECOMMENDATIONS
1. Medical management for newly diagnosed left ventricular dysfunction. Blood pressures are marginal. SVR measures 1028 bnwkg-jmp-ji(-5). Will begin metoprolol XL 12.5 mg p.o. daily with first dose now and add RASHIDA/ARB/ARNI as blood pressure
tolerates. Could consider aldosterone antagonist and/or SGLT2
2. Will need reassessment of LVEF after started on medical therapy
3. 2-4 week monitor on discharge for potential atrial fibrillation noted on telemetry strips which are not available for review.
Copy to: Dr. Ulisses Crews
[2023-09-06 13:09] LABS: Glucose - Point of Care 99 mg/dl (70-99)
[2023-09-06] MEDS: LASIX 40 MG IV (13:10)
[2023-09-06] MEDS: VIBRAMYCIN 100 MG PO ×2 (14:19→21:20)
[2023-09-06] MEDS: TOPROL XL 12.5 MG PO (14:19)
--- NOTE | 2023-09-06 16:17 | CM ---
Patient with Dx Acute hypoxic respiratory failure. O2 4L. Receiving Levophed gtt, IV Lasix. R/L heart cath today.
Met with patient who resides with her in a 2nd floor apartment with 5 outside stairs and 1 flight inside stairs up to apt.
The patient has been independent in ADLs and ambulation without using an assistive device.
There are 2 children living with them who assist as needed.
The family is planning on moving to a mobile home in 2 weeks.
DME - RW, SPC, commode, scooter
No prior VN or SNF
PCP - Rizwan Rivera
Pharmacy - [facility]
Offered VN for HF Education and patient agrees to a referral to [facility].
Referral placed.
Plan follow up with [facility] for acceptance.
Plan home with [facility].
[2023-09-06 17:14] LABS: Glucose - Point of Care 143 mg/dl (70-99)
--- NOTE | 2023-09-06 18:01 | PTCARENOTE ---
Right TR band removed at 1630. No bleeding noted. Good radial pulse and cap refill. Vital signs stable. Patient offers no complaints. Call jackson in reach.
[2023-09-06 19:30] LABS: Hepatitis B Surface Antigen Negative (Negative)
[2023-09-06 19:48] LABS: Hepatitis B Surface Antibody Negative; Hepatitis C Antibody Negative (Negative)
[2023-09-06 19:56] LABS: Hepatitis A Antibody, Total Negative (Negative)
[2023-09-06] MEDS: LIDOCAINE 4% PATCH TOPICAL (21:21)
[2023-09-06 21:35] LABS: Glucose - Point of Care 106 mg/dl (70-99)
[2023-09-07] VITALS (24 sets, daily range): BP systolic 98–133; BP diastolic 47–108; BMI 33.3
--- NOTE | 2023-09-07 01:30 | PTCARENOTE ---
Assumed care of Pt from day RN, Post cath peripheral pulse check done bedside on Right Radial artery. Pt had no complaints of pain at this time, Pt refusing her lidocaine patch. Pt glad to be moving and sitting on side of bed. Education on right arm
restrictions given. Assessment care and vitals as charted.
[2023-09-07] MEDS: SYNTHROID 175 MCG PO (04:29)
[2023-09-07 04:53] LABS: Hematocrit 39.1 % (37.0-47.0); Hemoglobin 13.3 g/dL (12.0-16.0); Mean Corpuscular Hgb 30.9 pg (27.0-31.0); Mean Corpuscular Volume 90.7 fL (81.0-99.0); Mean Platelet Volume 10.5 fL (7.4-10.4); Platelet Count 240 10^3/uL (130-400); Red Blood Cell Count 4.31 10^6/uL (4.20-5.40); Red Cell Dist. Width 14.4 % (11.5-14.5)
[2023-09-07 06:20] LABS: Blood Urea Nitrogen 20 mg/dl (7-17); Calcium 8.8 mg/dl (8.4-10.2); Carbon Dioxide 33 mmol/L (22-30); Chloride 99 mmol/L (98-107); Estimated Creatinine Clearance 74 ml/min; Glucose 104 mg/dl (70-99); Sodium 137 mmol/L (135-145); eGFR > 60.00
--- NOTE | 2023-09-07 06:33 | W.PN.HOSP.TC ---
Addendum entered and electronically signed by Napoleon Alarcon MD 09/07/23 10:24:
Addendum
Due to lack of confirmed atrial fibrillation. Will continue treatment with aspirin. Add subcu Lovenox for DVT prophylaxis
End
Original Note:
Today's Communication/Plan
-
.
Assessment / Plan
Assessment / Plan
58-year-old female present to the ER with shortness of breath she had COVID 2 months ago since then she has been having issues with breathing. A month ago she was diagnosed with COPD exacerbation and placed on steroids. She had some improvement
however started having more symptoms a couple weeks ago. Has orthopnea, also dyspnea on exertion. Denies any edema she also has a cough. 2 days ago she was started on steroids by her primary along with azithromycin. She was not getting better
came to the ER. I saw her in a rapid response this morning as she had decreased blood pressure and also upper back pain. Patient was placed on BiPAP in the ER she was also in atrial fibrillation on arrival. Then spontaneously converted to sinus
rhythm elevated proBNP noted on admission. LFTs were also elevated. Denies any abdominal pain
Physical Exam
General: Well Developed, Well Nourished, Respiratory Distress and Obese
HEENT: Normocephalic, Moist mucous membranes, Atraumatic, PERRLA and Oxygen
Respiratory: No wheezes, limited.
Cardiac: S1/S2
GI: Soft, Non Tender, Non Distended and Normal Bowel Sounds
Rectal: No rectal bleeding
Genito-urinary: Clear Urine
Musculoskeletal: No Clubbing, No Cyanosis and No Edema
Skin: Warm and Dry
Neuro: AO x 3
Hematologic/Lymphatic: No Lymphadenopathy
Psych: Calm
# Acute hypoxic respiratory failure with respiratory distress due to acute systolic ( new diagnosis) heart failure
Requiring BiPAP on admission.
No sob now, not in distress, on Nasal O2, try to wean off since we are using Lasix.
Chest x-ray on admission c/w mild pulmonary edema
Elevated proBNP noted. Troponin is negative
CT Chest , no PE
Started on Lasix, low dose BB, aspirin.
Echo 09/04 showed LVEF 20 to 25%, mild concentric LVH, septal dyskinesis, stage I diastolic dysfunction, mild MR, trace TR, normal right ventricular.
Trend troponin, mild elevation
# Cardiogenic shock
resolved.
# Non- ST elevation [place]
No chest pain
c/w IV heparin
Cardiac cath , non obstructive CAD
c/w aspirin
Appreciate cardiology input
# New onset atrial fibrillation in the ER reportedly-currently sinus rhythm
# Leukocytosis likely secondary to recent steroids
# Lactic acidosis likely secondary to hypotension-normalized
# COPD active smoker half a pack a day, she thinks she might quit?
Cessation counseling cannot rule out COPD exacerbation, will need OP pulmonary follow-up.
Off steroids
c/w breathing treatments.
Appreciate pulmonary help
# History of asthma
# Hypothyroidism-continue levothyroxine 175 mcg daily
# Hyperglycemia, resolved
checked hemoglobin A1c 5.6
dc insulin scale
# Transaminitis, enzymes are coming down , likely elevation due to ischemic hepatitis from shock.
Tylenol level less than 10
No right upper quadrant tenderness, denies any alcohol use
Routine ultrasound: No sonographic evidence for cholelithiasis or bile duct dilatation, hepatic echotexture is homogeneous without focal lesion..
Hepatitis panel if it does not trend down
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
# Obesity per BMI criteria
# DVT prophylaxis-Lovenox subcutaneously
# Full code
Total time spent to see the patient, examine the patient on the floor, review data and lab results, discuss treatment plan with patient and nursing staff around 57 minutes
Anticipated Discharge: 24 - 48 hours
Subjective/Interval History
-
Date of Service: September 07, 2023
No chest pain
No sob
No fevers
Objective Data
-
Labs:
Laboratory Results
09/06/23 09/07/23
11:15 04:40
WBC 9.0
Hgb 13.3
Hct 39.1
Plt Count 240
APTT Cancelled
Sodium 137
Potassium 4.0
Chloride 99
Carbon Dioxide 33 H
BUN 20 H
Creatinine 0.8
Glucose 104 H
Calcium 8.8
Vital Signs:
Vital Signs
Temp Pulse Resp BP Pulse Ox
98.3 F 74 12 105/60 93
09/07/23 03:35 09/07/23 05:00 09/07/23 05:00 09/07/23 05:00 09/07/23 05:00
I&O
09/05/23 09/06/23 09/07/23
06:59 06:59 06:59
Intake Total 860 / 860
Output Total 2150 / 2150 1900 / 1900
Balance -2150 / -2150 -1040 / -1040
[2023-09-07 07:44] LABS: Glucose - Point of Care 148 mg/dl (70-99)
[2023-09-07] MEDS: DUONEB 3 ML INH ×3 (07:48→20:13)
[2023-09-07] MEDS: TOPROL XL 12.5 MG PO (09:03)
[2023-09-07] MEDS: LASIX 40 MG IV ×2 (09:03→20:14)
[2023-09-07] MEDS: FLUSH (NSS) 1 FLUSH IV (09:03)
[2023-09-07] MEDS: VIBRAMYCIN 100 MG PO ×2 (09:04→20:14)
[2023-09-07] MEDS: LOW STRENGTH ASPIRIN 81 MG PO (09:04)
--- NOTE | 2023-09-07 09:16 | W.PN.PUL3 ---
Today's Communication / Plan
-
RHC/LHC reviewed, NICM confirmed
Placed on IV lasix to continue, follow daily weights/IOs
Eventual home O2 eval, will place order for tomorrow
We discussed outpatient pulmonary FU, information left in chart
Discharge planning per team once fluid status optimized
We will sign off at this time, please call with questions
Assessment
-
58-year-old female with history of childhood asthma, ongoing smoking, hypothyroidism who presents with progressive shortness of breath, back pain. Upon reviewing her outpatient records, she has had issues with recurrent upper respiratory
infections, wheezing, nocturnal coughs and PND. She has been treated multiple times for asthma and COPD exacerbations per her primary. Her recent outpatient visit 09/03/2023, chest exam was clear. She now presents with back pain, hypoxia,
hypertension. Chest x-ray suggest heart failure per my review. She then developed hypotension following Lasix and nitroglycerin. We are asked to help from pulmonary/critical care standpoint 09/05/2023
Acute hypoxic respiratory insufficiency, 82% on room air
Acute hypercapnic respiratory insufficiency, requiring BiPAP
Bilateral interstitial changes
Acute systolic congestive HF, new NICM w/ reduced EF 20-25%
Left bundle branch block, per EKG, chronicity unclear
Elevated troponin
Recent recurrent COPD/asthma exacerbation, recent abx/steroids treated by primary physician
Leukocytosis, on recent steroids per primary
Hyperglycemia
Moderate emphysema, per CT chest
Right apical nodular abnormality
Conditions present prior to admission
Suspected COPD
History of childhood asthma
Hypothyroidism
40 pack-year history of smoking, ongoing
Plan/recommendations
At this time, clinical status is slowly improving
Weaned to 3L NC, may need home O2 eval eventually
Hypotension noted, occurred after Lasix/nitroglycerin per ED
Patient is presently without chest pain
Left bundle branch block per EKG is noted
Chest x-ray per my review suggests heart failure, ECHO confirms new CM EF 20-25%
For cath today--reviewed, NICM confirmed
Diuretics per team
Cards following
Imaging reviewed
No clear interstitial process per CT imaging
Right upper lobe scattered nodules are noted, small
No obvious PE
Mild to moderate emphysema per CT chest, COPD is also suspected
She has never seen pulmonary in past
We discussed need for outpatient FU with PFTs for this
Ongoing tobacco use, smoking 1/2 PPD RN BURN
Smoking cessation discussed, she has declined NRT
Lung cancer screening is indicated in this patient
Outpatient pulmonary FU recommended, PFTs/6MWT
Reviewed with patient, primary service
Diagnostic Data
CXR 09/05/23: Mild interstitial pulmonary edema.
CT chest 09/05/23- 1. No CTA evidence for an acute pulmonary thromboembolism.
2. Moderate centrilobular emphysema.
3. Minor patchy opacities in the bilateral upper lobe suspicious for superimposed mild pneumonitis.
ECHO 09/05/23: Left ventricle is mildly dilated. Severely reduced left ventricular systolic function. Left ventricular ejection fraction is 20-25% by Hidalgo's method. Global hypokinesis. Septal dyskinesis related to IVCD. Mild concentric left
ventricular hypertrophy. Stage I diastolic dysfunction suggestive of abnormal relaxation. Normal right ventricular size. Normal right ventricular systolic function. Normal atria. Mild mitral regurgitation. Trace tricuspid regurgitation. Estimated
pulmonary artery pressure of 25-30 mmHg. Assuming a right atrial pressure of 8 mmHg. Trace pulmonic regurgitation. Normal pericardium without effusion. No pleural effusion present. The aortic root is normal in caliber. Suboptimal suprasternal notch
view. Color flow pattern suggestive of small PFO. The IVC is of normal size but does not demonstrate normal respiratory variation. No intracardiac mass or thrombus formation seen. No prior study for comparison.
Subjective Data
-
Date of Service:
Date of Service: September 07, 2023
Chief Complaint: Pulmonary Follow Up
Subjective:
no acute events on, s/p [facility] yesterday
feels good, no new complaints
Objective Data
Data Reviewed
Vital Signs / I&O / Oxygen:
Vital Signs
Temp Pulse Resp BP Pulse Ox
98.5 F 73 17 104/60 90
09/07/23 07:54 09/07/23 09:00 09/07/23 09:00 09/07/23 09:00 09/07/23 09:14
Intake and Output
09/06/23 09/07/23 09/08/23
06:59 06:59 06:59
Intake Total 860 / 860
Output Total 2150 / 2150 1900 / 1900
Balance -2150 / -2150 -1040 / -1040
SaO2 90
Nasal Cannula flow liters per 3
minute
Physical Exam
General: Comfortable, Good Appetite and Other (NAD)
HEENT: Normocephalic, Anicteric and Moist Mucous Membranes
Cardiovascular: S1-S2 and Regular Rhythm
Respiratory: Clear and Non-Labored Respirations
GI: Soft, Non Distended and Non Tender
Neurology: Awake, Alert, Oriented, AO x 3 and No Motor Deficits
Skin: Warm, Dry and Good Color
Labs/Micro/Reports
Lab Data
09/07/23 04:40
09/07/23 04:40
Laboratory Results
09/06/23
11:15
APTT Cancelled
--- NOTE | 2023-09-07 09:46 | W.PN.CARDCBS ---
Today's Communication / Plan
-
Increase Lasix to 40 mg IV twice daily.
Continue Toprol and aspirin.
Trend LFTs.
Hopefully if blood pressure is stable eventually add RASHIDA/ARB/Arni
Impression / Plan
-
Collection Coordinator: Dr. David Warren, DO (Last OV 09/16/2011)
.
TTE 06/2010 EF 50%, trace MR, mild TR
Lexiscan MPI 06/2010 fixed defect consistent with soft tissue attenuation per report
.
Impression:
Acute heart failure with reduced ejection fraction. EF 15 to 20%
Nonobstructive CAD by cath
Acute respiratory failure requiring BiPAP, multifactorial, improved on BiPAP
� Hypercapnic, hypoxic
� BNP 8800, troponin 0.028
� WBC 19, lactic acid 4.6, improved to 1.6
� EKG sinus tachycardia IVCD
� CT no PE, moderate emphysema, minor patchy opacities bilateral upper lobe suspicious for superimposed pneumonitis
COPD/emphysema
Mixed dyslipidemia
Bundle-branch block/IVCD
Continuous tobacco use disorder
PAF in the setting of above
Hypothyroidism
Cardiac cath September 06, 2023, nonobstructive CAD, RA 22, PA 47/27, pulmonary capital wedge pressure 32
Echocardiogram 09/05/2023, EF 20 to 25%, no significant valve disease
Recommendations:
Cath results were reviewed with patient. She remains volume overloaded but with marginal blood pressure. Clinically she is improving.
Will increase Lasix to 40 mg IV twice daily. Follow blood pressure.
Continue Toprol.
Would hold off on RASHIDA/ARB/Arni due to hypotension for now. Hopefully start over the next 24 hours.
Creatinine and potassium remain normal and LFTs continue to improve.
She has no significant obstructive CAD.
She remains in sinus rhythm. No clear documented A-fib. Will continue to follow on telemetry. Continue Toprol and aspirin for now.
Will need outpatient monitor to look for A-fib and consideration for full anticoagulation if she has A-fib.
Progress Note - Collection Coordinator
Subjective
Date of Service: September 07, 2023
Feeling somewhat better. Weight is improved. Denies chest pain and breathing is getting better
Objective
Labs:
09/07/23 04:40
09/07/23 04:40
Labs
Hgb 13.3 g/dL (12.0-16.0) 09/07/23 04:40
Hct 39.1 % (37.0-47.0) 09/07/23 04:40
Plt Count 240 10^3/uL (130-400) 09/07/23 04:40
APTT Cancelled 09/06/23 12:00
Sodium 137 mmol/L (135-145) 09/07/23 04:40
Potassium 4.0 mmol/L (3.5-5.1) 09/07/23 04:40
BUN 20 mg/dl (7-17) H 09/07/23 04:40
Creatinine 0.8 mg/dL (0.6-1.0) 09/07/23 04:40
Glucose 104 mg/dl (70-99) H 09/07/23 04:40
Troponins
09/05/23 09/05/23 09/05/23
03:56 08:21 12:00
Troponin I 0.028 0.254 H* D Cancelled
09/05/23 09/05/23
16:00 20:52
Troponin I Cancelled 0.199 H*
Vital Signs and I&O:
Vital Signs
Temp Pulse Resp BP Pulse Ox
98.5 F 73 17 104/60 90
09/07/23 07:54 09/07/23 09:00 09/07/23 09:00 09/07/23 09:00 09/07/23 09:14
Vital Signs
Temp Pulse Resp BP Pulse Ox
98.5 F 73 17 104/60 90
09/07/23 07:54 09/07/23 09:00 09/07/23 09:00 09/07/23 09:00 09/07/23 09:14
Intake & Output
09/05/23 09/06/23 09/07/23 09/08/23
06:59 06:59 06:59 06:59
Intake Total 860 / 860
Output Total 2149 / 2149 1900 / 1899
Balance -2150 / -2150 -1040 / -1040
Physical Exam
Physical Exam
GEN: No distress, awake, Ox3
HEENT: supple, anicteric, mmm
LUNGS: CTA, no wheezes/rales
CV: Reg, S1/S2, 1/6 syst LSB, S3+
ABD: soft, BS+, NT/ND
EXT: trace edema
NEURO: Gross non-focal
SKIN: No rash
--- NOTE | 2023-09-07 11:36 | CM ---
Patient seen at bedside, sleeping. Patient accepted by Luis E for services at discharge. CM will continue to follow for discharge planning needs.
Plan; home with [facility] when medically appropriate.
[2023-09-07] MEDS: DUONEB INH (11:56)
[2023-09-07] MEDS: LOVENOX 40 MG SC (18:02)
[2023-09-07] MEDS: LIDOCAINE 4% PATCH TOPICAL ×2 (20:14→22:43)
[2023-09-08] VITALS (15 sets, daily range): BP systolic 81–124; BP diastolic 53–77; BMI 33.3
--- NOTE | 2023-09-08 03:13 | DOWNTIME ---
There was a [employer] Client Business Rules Developer Downtime on 09/07/2023 from 0100 to 09/08/2023 at 0300. Downtime documentation of patient's care, including medication administrations, has been reconciled in the electronic record per guidelines. Refer to the
patient's paper chart under the miscellaneous tab to see printed paper medication records and downtime forms.
[2023-09-08 04:40] LABS: ALT (SGPT) 54 U/L (0-35); AST (SGOT) 29 U/L (14-36); Albumin 3.9 g/dl (3.5-5.0); Alkaline Phosphatase 113 U/L (38-126); Blood Urea Nitrogen 25 mg/dl (7-17); Calcium 9.5 mg/dl (8.4-10.2); Carbon Dioxide 33 mmol/L (22-30); Chloride 95 mmol/L (98-107); Estimated Creatinine Clearance 66 ml/min; Glucose 110 mg/dl (70-99); Sodium 137 mmol/L (135-145); Total Bilirubin 0.8 mg/dl (0.2-1.3); Total Protein 7.3 g/dl (6.3-8.2); eGFR > 60.00
[2023-09-08] MEDS: SYNTHROID 175 MCG PO (06:18)
--- NOTE | 2023-09-08 06:23 | W.PN.HOSP.TC ---
Addendum entered and electronically signed by Napoleon Alarcon MD 09/08/23 14:25:
Addendum
Patient was seen again. She feels better and would like to go home. Oxygen testing showed no need for oxygen. Oxygen saturation noticeably improved.
Discussed with patient regarding potential side effects of medications and importance of avoiding tobacco use. She verbalized understanding. Discussed with case supervisor and
Cardiology service. Discharge instructions were finalized
End
Original Note:
Today's Communication/Plan
-
dc
home O2 evaluation
Assessment / Plan
Assessment / Plan
58-year-old female present to the ER with shortness of breath she had COVID 2 months ago since then she has been having issues with breathing. A month ago she was diagnosed with COPD exacerbation and placed on steroids. She had some improvement
however started having more symptoms a couple weeks ago. Has orthopnea, also dyspnea on exertion. Denies any edema she also has a cough. 2 days ago she was started on steroids by her primary along with azithromycin. She was not getting better
came to the ER. I saw her in a rapid response this morning as she had decreased blood pressure and also upper back pain. Patient was placed on BiPAP in the ER she was also in atrial fibrillation on arrival. Then spontaneously converted to sinus
rhythm elevated proBNP noted on admission. LFTs were also elevated. Denies any abdominal pain
Physical Exam
General: Well Developed, Well Nourished, Respiratory Distress and Obese
HEENT: Normocephalic, Moist mucous membranes, Atraumatic, PERRLA and Oxygen
Respiratory: No wheezes, limited.
Cardiac: S1/S2
GI: Soft, Non Tender, Non Distended and Normal Bowel Sounds
Rectal: No rectal bleeding
Genito-urinary: Clear Urine
Musculoskeletal: No Clubbing, No Cyanosis and No Edema
Skin: Warm and Dry
Neuro: AO x 3
Hematologic/Lymphatic: No Lymphadenopathy
Psych: Calm
# Acute hypoxic respiratory failure with respiratory distress due to acute systolic ( new diagnosis) heart failure
Requiring BiPAP on admission.
No sob now, not in distress, on Nasal O2, try to wean off since we are using Lasix.
Chest x-ray on admission c/w mild pulmonary edema
Elevated proBNP noted. Troponin is negative
CT Chest , no PE
Started on Lasix, low dose BB, aspirin. Change Lasix to oral.
Home O2 evaluation
Echo 09/04 showed LVEF 20 to 25%, mild concentric LVH, septal dyskinesis, stage I diastolic dysfunction, mild MR, trace TR, normal right ventricular.
Trend troponin, mild elevation
# Cardiogenic shock
resolved.
# Non- ST elevation [place]
No chest pain
c/w IV heparin
Cardiac cath , non obstructive CAD
c/w aspirin
Appreciate cardiology input
# New onset atrial fibrillation in the ER reportedly-currently sinus rhythm
# Leukocytosis likely secondary to recent steroids
# Lactic acidosis likely secondary to hypotension-normalized
# COPD active smoker half a pack a day, she thinks she might quit?
Cessation counseling cannot rule out COPD exacerbation, will need OP pulmonary follow-up.
Off steroids
c/w breathing treatments.
Appreciate pulmonary help
# History of asthma
# Hypothyroidism-continue levothyroxine 175 mcg daily
# Hyperglycemia, resolved
checked hemoglobin A1c 5.6
dc insulin scale
# Transaminitis, enzymes are coming down , likely elevation due to ischemic hepatitis from shock.
Tylenol level less than 10
No right upper quadrant tenderness, denies any alcohol use
Routine ultrasound: No sonographic evidence for cholelithiasis or bile duct dilatation, hepatic echotexture is homogeneous without focal lesion..
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
# Obesity per BMI criteria
# DVT prophylaxis-Lovenox subcutaneously
# Full code
Total discharge time spent to see the patient, examine the patient on the floor, review data and lab results, discuss discharge plan with patient and nursing staff around 67 minutes
Anticipated Discharge: Today
Subjective/Interval History
-
Date of Service: September 08, 2023
No sob
No chest pain
No fevers
Objective Data
-
Labs:
Laboratory Results
09/08/23
03:54
Sodium 137
Potassium 4.0
Chloride 95 L
Carbon Dioxide 33 H
BUN 25 H
Creatinine 0.9
Glucose 110 H
Calcium 9.5
Total Bilirubin 0.8
AST 29
ALT 54 H
Alkaline Phosphatase 113
Vital Signs:
Vital Signs
Temp Pulse Resp BP Pulse Ox
98.5 F 75 14 99/76 88
09/08/23 03:35 09/08/23 06:00 09/08/23 06:00 09/08/23 06:00 09/08/23 06:00
I&O
09/06/23 09/07/23 09/08/23
06:59 06:59 06:59
Intake Total 860 / 860 240 / 240
Output Total 2149 / 2149 1899 / 1899 2149 / 2149
Balance -2149 / -2149 -1040 / -1040 -1909 /
[2023-09-08] MEDS: DUONEB 3 ML INH ×2 (08:21→11:58)
[2023-09-08] MEDS: LOW STRENGTH ASPIRIN 81 MG PO (08:57)
[2023-09-08] MEDS: VIBRAMYCIN 100 MG PO (08:57)
[2023-09-08] MEDS: LASIX 40 MG PO (08:57)
[2023-09-08] MEDS: TOPROL XL 12.5 MG PO (08:57)
--- NOTE | 2023-09-08 10:23 | W.PN.CARDCBS ---
Addendum entered and electronically signed by Judith Flores PA-C 09/08/23 13:58:
after further review by CM, jardiance is in fact affordable to patient - agreeable to higher amount until deductible hit. copay card to be provided by [facility]. d/w hospitalist as well. OP cardiac follow up arranged. will also arrange for OP Bardy monitor
to assess for afib
Addendum entered and electronically signed by Judith Flores PA-C 09/08/23 11:54:
jardiance unfortunately cost prohibitive to patient - $307.86 per month as has not met high deductible.
Original Note:
Today's Communication / Plan
-
Extra Lasix 20 mg IV today. Continue Toprol.
Add lisinopril 2.5 mg daily and Jardiance 10 mg daily.
Remains in sinus rhythm. Will need outpatient monitor.
Wean oxygen. Once off oxygen okay for discharge.
Impression / Plan
-
Sales And Business Development Manager: Dr. David Warren, (Last OV 09/16/2011)
.
TTE 06/2010 EF 50%, trace MR, mild TR
Lexiscan MPI 06/2010 fixed defect consistent with soft tissue attenuation per report
.
Impression:
Acute heart failure with reduced ejection fraction. EF 15 to 20%
Nonobstructive CAD by cath
Acute respiratory failure requiring BiPAP, multifactorial, improved on BiPAP
� Hypercapnic, hypoxic
� BNP 8800, troponin 0.028
� WBC 19, lactic acid 4.6, improved to 1.6
� EKG sinus tachycardia IVCD
� CT no PE, moderate emphysema, minor patchy opacities bilateral upper lobe suspicious for superimposed pneumonitis
COPD/emphysema
Mixed dyslipidemia
Bundle-branch block/IVCD
Continuous tobacco use disorder
PAF in the setting of above
Hypothyroidism
Cardiac cath September 06, 2023, nonobstructive CAD, RA 22, PA 47/27, pulmonary capital wedge pressure 32
Echocardiogram 09/05/2023, EF 20 to 25%, no significant valve disease
Recommendations:
Clinically she is improved but still remains on oxygen. Will give extra 20 mg of IV Lasix today. Blood pressure seems improved. Continue Toprol.
Will add lisinopril 2.5 mg daily and Jardiance 10 mg daily.
Wean oxygen.
Creatinine and potassium remain normal and LFTs continue to improve.
She has no significant obstructive CAD.
She remains in sinus rhythm. No clear documented A-fib. Will continue to follow on telemetry. Continue Toprol and aspirin for now.
Will need outpatient monitor to look for A-fib and consideration for full anticoagulation if she has A-fib.
Progress Note - Sales And Business Development Manager
Subjective
Date of Service: September 08, 2023
Feeling better but still on oxygen. Breathing is improved.
Objective
Labs:
09/07/23 04:40
09/08/23 03:54
Labs
Hgb 13.3 g/dL (12.0-16.0) 09/07/23 04:40
Hct 39.1 % (37.0-47.0) 09/07/23 04:40
Plt Count 240 10^3/uL (130-400) 09/07/23 04:40
APTT Cancelled 09/06/23 12:00
Sodium 137 mmol/L (135-145) 09/08/23 03:54
Potassium 4.0 mmol/L (3.5-5.1) 09/08/23 03:54
BUN 25 mg/dl (7-17) H 09/08/23 03:54
Creatinine 0.9 mg/dL (0.6-1.0) 09/08/23 03:54
Glucose 110 mg/dl (70-99) H 09/08/23 03:54
Troponins
09/05/23 09/05/23 09/05/23
12:00 16:00 20:52
Troponin I Cancelled Cancelled 0.199 H*
Vital Signs and I&O:
Vital Signs
Temp Pulse Resp BP Pulse Ox
99.3 F 85 16 116/77 94
09/08/23 07:55 09/08/23 09:00 09/08/23 09:00 09/08/23 09:00 09/08/23 09:00
Vital Signs
Temp Pulse Resp BP Pulse Ox
99.3 F 85 16 116/77 94
09/08/23 07:55 09/08/23 09:00 09/08/23 09:00 09/08/23 09:00 09/08/23 09:00
Intake & Output
09/06/23 09/07/23 09/08/23 09/09/23
06:59 06:59 06:59 06:59
Intake Total 860 / 860 240 / 240
Output Total 2150 / 0 1900 / 1900 2150 / 215
Balance -2150 / -2150 -1040 / -1040 -1909 / -1909
Physical Exam
Physical Exam
GEN: No distress, awake, Ox3
HEENT: supple, anicteric, mmm
LUNGS: scatt rhonchi
CV: Reg, S1/S2, 1/6 syst LSB, no gallop
ABD: soft, BS+, NT/ND
EXT: No edema
NEURO: Gross non-focal
SKIN: No rash
[2023-09-08] MEDS: DUONEB INH (11:27)
[2023-09-08] MEDS: LASIX 20 MG IV (11:42)
[2023-09-08] MEDS: ZESTRIL 2.5 MG PO (11:42)
[2023-09-08] MEDS: JARDIANCE 10 MG PO (11:42)
--- NOTE | 2023-09-08 12:04 | PTCARENOTE ---
Patient received IV lasix and jardiance as ordered by cardiology. Respiratory therapist did home O2 assessment and stated patient did not drop below 93%; he stated he will enter data. CM called patient and stated her copay for jardiance will be
>$300; patient requested another med. Lindsey JUAN stated she will contact physician. Dr Alarcon made aware of above.
--- NOTE | 2023-09-08 12:48 | CM ---
Addendum entered by Carolyne Lorenzo RN 09/08/23 16:53:
Spoke with Leighann CANO (fax [phone]); informed her of d/c today.
Addendum entered by Carolyne Lorenzo RN 09/08/23 16:51:
Provided Jardiance Copay Card to patient with explanations.
Original Note:
Patient with Dx Acute hypoxic respiratory failure. O2 3L. Home O2 Assessment today.
CM Consult: darden check Jardiance 10mg daily
Spoke with pharmacist [facility] (ph [phone]); cost of med is $307.86
Patient states she cannot afford and does not know her deductible.
Spoke with Te[facility] Customer [facility], [facility] (ph [phone]); the patient has an individual plan with a $500 deductible.
Jardiance is a Tier 3 Formulary drug.
Cost will be $307 first month $292 second month then $100/month at [facility] or $200/3 months at [facility].
Patient is okay with Jardiance cost.
Patient is hoping to go home today. Her is at the bedside and will provide transport home.
Plan home with [facility] E [facility]O.
--- NOTE | 2023-09-08 14:10 | W.DCSUMMARY ---
Discharge Summary
Discharge Data
Date of Admission: 09/05/23
Date of Discharge: 09/08/23
-
Pending Results: No
Hospital Course
58 years old female presented to the emergency room with progressive shortness of breath over the last few weeks. She was found to have hypoxia with tachycardia and elevated troponin at 0.254. Chest radiography was consistent with pulmonary
edema. Patient was started on BiPAP therapy with intravenous diuretic. She was given intravenous nitroglycerin. She developed hypotension and nitroglycerin was stopped. Patient was admitted to the intermediate unit. She was evaluated by
home lending officer. Patient reported history of treatment with steroid and antibiotics over the last year for presumed chronic obstructive pulmonary disease exacerbations. Initial diagnosis was possible non-ST elevation [place]. She had echocardiogram that
showed left ventricular ejection fraction of 20 - 25%, mild concentric left ventricular hypertrophy, septal dyskinesis, stage I diastolic dysfunction, mild mitral regurgitation, trace tricuspid regurgitation with normal right ventricular function.
Patient was diagnosed with acute hypoxic respiratory failure. She subsequently underwent cardiac catheterization that showed nonobstructive coronary disease. Chest scan did not show pulmonary embolism. Patient was maintained on Lasix therapy.
Her oxygenation started to improve and told she was able to come off oxygen. Patient was counseled aggressively to avoid smoking. She was educated regarding congestive heart failure risks. There was a report of possible atrial fibrillation but no
documented cardiac rhythm. Glue Mounter Operator recommended outpatient cardiac monitoring. Patient remained hemodynamically stable. She was able to tolerate new cardiac medications. She was counseled regarding potential benefits and side effects of
these medications and she verbalized understanding. Patient was discharged home with home care services in a stable condition. manager monitoring was involved in discharge planning
Discharge Plan
-
Patient Disposition: Home with Home Care
Discharge Diagnosis/Procedures: Acute systolic heart failure(congestive heart failure)/non-ischemic cardiomyopathy, you were started on new medications:
Toprol, beta-edgar, potential side effects: Hypotension, fatigue, low heart rate.
Jardiance: Kidney insufficiency, nausea, hypoglycemia, vaginal infection
Lasix(furosemide): Diuretic treatment: Potential side effects are hypotension, kidney insufficiency, low potassium
Lisinopril: Hypertension, kidney insufficiency, high potassium, angioedema, cough
You had cardiac catheterization and showed nonobstructive coronary disease, nonischemic dilated cardiomyopathy
Condition: Serious
Diet: Low Cholesterol and 2 Gram Sodium
Activity: As tolerated
Blood Work: BMP in one week
Instructions: *DCA Heart Failure Instructions
Stand Alone Forms: DC Instructions- Cath/EP Lab
Referrals:
Dee Monroe PA-C [Specified Professional Personl] - 09/14/23 8:40 am (You have a cardiology follow-up appointment at the [place] office. Please call with questions)
Yi Larsen, [Active] - (4 weeks, PFT)
Rizwan Rivera DO [Active] -
Prescriptions:
New
Jardiance 10 mg Tablet
10 mg PO DAILY 30 Days Qty: 30 0RF
furosemide 40 mg Tablet
40 mg PO DAILY Qty: 30 0RF
levothyroxine 175 mcg Tablet
175 mcg PO DAILY @ 0600 Qty: 30 0RF
aspirin [Children's Aspirin] 81 mg Tablet,Chewable
81 mg PO DAILY Qty: 30 0RF
metoprolol succinate 25 mg Tablet Extended Release 24 Hr
12.5 mg PO DAILY Qty: 30 0RF
lisinopril 2.5 mg Tablet
2.5 mg PO DAILY Qty: 30 0RF
Discharge Orders:
Discharge Patient (As Directed); Ordered 09/08/23
Ordered By: Napoleon Alarcon
Discharge Date and Time
Print Language: NORTH KOREAN
--- NOTE | 2023-09-08 14:26 | W.HF.CON ---
Heart Failure
- LV Function
Left ventricular function study result: LV Ejection fraction </= 35%
Ejection Fraction Percentage: 20-25
- ARNI
Patient already on ARNI: No
Heart Failure ARNI Contraindication: Hypotension
- ACEI/ARB
Patient already on ACEI/ARB: Yes
- Beta Daphne
Patient already on Evidence Based Beta Daphne: Yes
- Mineralocorticord Receptor Antagonist
Patient already on MRA: No
Heart Failure MRA Contraindication: Hypotension
- SGLT-2 Inhibitor
Patient already on SGLT-2 Inhibitor: Yes
- NYHA CHF Classification
NYHA CHF Classification Level: Class III - Symptoms w/ min exertion, interferes w/ nml daily activity
- ACC/AHA Stage
ACC/AHA Stage: Stage C: Symptomatic Heart Failure
--- NOTE | 2023-09-08 15:09 | W.PN.UPDATE ---
Update Note
Progress Note Update
given noted nonobstructive CAD by cath, patient's trop elevation not felt to be consistent with NSTEMI but rather with nonischemic myocardial injury.
--- NOTE | 2023-09-08 15:45 | PN.CDI ---
Addendum entered and electronically signed by Napoleon Alarcon MD 09/09/23 06:14:
NSTEMI was ruled out, nonischemic myocardial injury only
Original Note:
CDI
- -
CDI:
Physician Documentation Request
Admit Date: 09/05/23 06:33
Dear Doctor Dorian,
Please review the following and provide your response in the progress notes.
Clinical Indicators:
09/04 Pt admitted Acute sytolic heart failure and Acute respiratory failure
09/07 PN: 'Non- ST elevation [place], Cardiac cath , non obstructive CAD'
09/07 Cardiology Note: 'given noted nonobstructive CAD by cath, patient's trop elevation not felt to be consistent with NSTEMI but rather with nonischemic myocardial injury.'
09/07 Discharge Summary: ' Initial diagnosis was possible non-ST elevation LA.......She subsequently underwent cardiac catheterization that showed nonobstructive coronary disease.'
Please clarify the following:
NSTEMI was ruled out, nonischemic myocardial injury only
NSTEMI is still a likely, suspected, probable diagnosis
Other
Use of terms such as suspected, likely, concern for, or probable (associated with a specific diagnosis that is being evaluated, monitored, or treated as if it exists) are acceptable and can be coded in the inpatient setting, when documented at the
time of discharge.
Thank you,
Shanell Baron RN, BSN
CDI Specialist
Available via [place] [employer]
Please use your independent medical judgment in providing your response.
== END 2023-09-08 16:03 | disposition home health service (06) | DRG 286 ==
LOC: IMU 06:33
PROVIDERS: Hospitalist; Nurse Practitioner; ADMITTING PHYSICIAN Internal Medicine; ATTENDING PHYSICIAN Internal Medicine; CONSULT PHYSICIAN Internal Medicine Cardiovascular Disease; EMERGENCY PHYSICIAN Emergency Medicine; OTHER PHYSICIAN Internal Medicine Critical Care Medicine
PROC: 4A023N8 Measurement of Cardiac Sampling and Pressure, Bilateral, Percutaneous Approach (ICD-10-PCS; 2023-09-06)
PROC: B2161ZZ Fluoroscopy of Right and Left Heart using Low Osmolar Contrast (ICD-10-PCS; 2023-09-06)
PROC: B2111ZZ Fluoroscopy of Multiple Coronary Arteries using Low Osmolar Contrast (ICD-10-PCS; 2023-09-06)
DX: I11.0 Hypertensive heart disease with heart failure (principal); I50.21 Acute systolic (congestive) heart failure; J96.01 Acute respiratory failure with hypoxia; R57.0 Cardiogenic shock; J96.02 Acute respiratory failure with hypercapnia; J44.1 Chronic obstructive pulmonary disease with (acute) exacerbation; E87.20 Acidosis, unspecified; I42.0 Dilated cardiomyopathy; F17.210 Nicotine dependence, cigarettes, uncomplicated; J43.9 Emphysema, unspecified; N28.9 Disorder of kidney and ureter, unspecified; I48.0 Paroxysmal atrial fibrillation; E03.9 Hypothyroidism, unspecified; E66.9 Obesity, unspecified; Z68.33 Body mass index [BMI] 33.0-33.9, adult; I95.9 Hypotension, unspecified
CPT/HCPCS: 71045; 71275; 76700; 80048; 80053; 80061; 80143; 82248; 82805; 82962; 83036; 83605; 83735; 83880; 84443; 84484; 85025; 85027; 85730; 86706; 86708; 86803; 87340; 93005; 93306; 93460; 94640; 94660; 96374; 96375; 99291; C1894; Q9967

== ENCOUNTER → 2023-12-14 08:04 | Outpatient (REF) | payer OTHER, SELFPAY | LOC: RCS 08:04 | PROVIDERS: ATTENDING PHYSICIAN Physician Assistant Medical; FAMILY PHYSICIAN Family Medicine | DX: I42.8 Other cardiomyopathies (principal) | CPT/HCPCS: 93306 ==

== ENCOUNTER → 2024-02-08 08:17 | Outpatient (REF) | payer OTHER, SELFPAY | LOC: PAVMRI 08:17 | PROVIDERS: ATTENDING PHYSICIAN Nuclear Medicine Nuclear Cardiology; FAMILY PHYSICIAN Family Medicine | DX: I42.8 Other cardiomyopathies (principal) | CPT/HCPCS: 75561; 75565; A9585 ==

== ENCOUNTER 2024-03-13 07:37 | Day surgery (SDC) | payer OTHER, SELFPAY ==
[2024-03-10 14:19] VITALS: BMI 35.7
[2024-03-13] VITALS (16 sets, daily range): BP systolic 97–164; BP diastolic 49–117; BMI 33.8
[2024-03-13] MEDS: VANCOCIN 530 MG IV (08:55)
--- NOTE | 2024-03-13 09:07 | W.ICD.CONTRA ---
Post ICD/HEALTHCARE BUSINESS ANALYST-D
-
History of IL?: No
LV Function
Left ventricular function study result?: Ejection Fraction </= 35%
ACEI/ARB/ARNI
Patient already on ACEI/ARB/ARNI: Yes
Beta-Daphne
Patient already on Beta Daphne: Yes
--- NOTE | 2024-03-13 09:08 | ITS.CL.ICD ---
Inventory Associate - ICD
Implantable Cardioverter Defibrillator
Procedure Report:
ICD IMPLANTATION REPORT
Date of Procedure: March 13, 2024
Primary Care Provider: Dr. Rizwan Dumas
Primary Credit Checker: Dr. David Warren
envelope stamping machine operator: Rizwan Diaz M.D.
PROCEDURES:
1. Right Heart Cath, 2. BiV ICD Implant
INDICATION FOR PROCEDURE:
She has heart failure with reduced ejection fraction, [place] Heart Association class III, left bundle branch block (EKG December 16, 2023 sinus rhythm with left bundle branch block and QRS duration of 150 ms).� Severe left ventricular systolic
dysfunction despite greater than 3 months of guideline directed medical therapy (lisinopril, metoprolol succinate, empagliflozin, furosemide).
� -� 09/05/23 echo: LVEF 20-25%
� -� 12/14/23 echo: LVEF 20-25%
� -� 02/08/24 Cardiac MRI: LVEF 30%,
HISTORY: Please refer to office history and physical exam
After informed consent was obtained, a 'time out' was called and confirmed. The patient was prepped and draped in a sterile fashion.
Lidocaine with epi was used for local anesthesia. Central venous access was obtained via axillary venipuncture. An incision was made along the left chest and a pre-pectoral pocket was formed. Using a Seldinger technique and peel-away sheaths, the
pacing leads were placed under fluoroscopic guidance. Once testing (see below) showed adequate and stable function, the leads were secured using the suture sleeves. The pocket was liberally irrigated with antibiotic solution. The leads were
connected to the generator header and the leads and generator were placed within the pocket. Fluoroscopy confirmed stable lead position. The pocket was closed in the typical fashion.
FLUOROSCOPY:
Fluoroscopy was used to guide lead placement.
Fluoroscopy was used to determine likely anatomic site for left bundle branch pacing. The [employer] C315 sheath was used to deliver the Medtronic 3830 Selectsecure pacing lead with the helix exposed just exposed from the sheath tip during continuous
monitoring when pacemapping the septum during gentle clockwise rotation to obtain a paced QRS morphology of a W pattern in lead V1. Once the suspected optimal site was identified, lead deployment was performed with several rapid rotations as paced
QRS morphology was intermittently monitored until a paced QRS complex in lead V1 demonstrated development of an R wave [ ] (qR or rSR).
Unipolar pacing impedance dropped by approximately 100 ohms suggesting it had reached the left ventricular subendocardial.
Stable VEgm injury current is present throughout final lead position including at end of case, suggesting there was no perforation through the septum into the LV cavity.
Unipolar pacing impedance is 1500 Ohms
Unipolar pacing threshold is stable at 0.75 V @ 0.4 ms.
Final conduction system paced QRS complex duration is 74 ms
LVAT is 79 ms and peak V5 -> peak V1 timing is 45 ms
Right atrial pacing lead was placed at the right atrial appendage using active-fixation
IMPLANTS:
ICD Medtronic [id number], SN RTG 65036 S , Left Pectoral
RA Medtronic 5076, SN PJNAYY 980
RV Medtronic 6935M, SN TDL [id number] V
Left Bundle: Medtronic 3830 , SN:LFF [id number] V, Interventricular septum at LBB
DEVICE TESTING:
Sensing: RA 1.8, RV 16
Capture: RA 0.75 V @ 0.4 ms, RV 0.75 V @ 0.4ms, LBB 0.5 V@ 0.4ms
Ohms: RA 532, RV 574, LBB 1045 (bipolar)
FINAL PROGRAMMING:
Akira Pacing: DDDR 60 -130
Tachy parameters:
VF: 188 bpm, ATP X 1, Shock
COMPLICATIONS:
None
CONCLUSIONS:
Implantation of SNUFF CONTAINER INSPECTOR defibrillator
RECOMMENDATIONS:
1. Telemetry monitoring, CXR
2. Office wound check in 5-7 days.
Copy:
Dr. Rizwan Dumas
Dr. David Warren
[2024-03-13] MEDS: STERILE WATER FOR INJECTION 10 ML IV (09:45)
[2024-03-13] MEDS: AZACTAM 2000 MG IV (09:45)
--- NOTE | 2024-03-13 11:00 | PTCARENOTE ---
Rec'd report from Blue in the EP lab; Rec'd pt AAOx3 w/no c/o CP or SOB. Pt w/VS stable w/HR in the 60's & BP 110/49 on arrival. Pt is V paced on telemetry monitoring. EKG post device placement completed. Pt positioned for comfort & plan of care
discussed, incl activity & LUE restrictions. Pt w/call jackson within reach & plan of care ongoing.
--- NOTE | 2024-03-13 12:55 | CM ---
Reviewed chart. Met with Mrs. Maurer to review discharge plans. She states prior to admission she resides with her spouse and 14 and 19 year old grandchildren in a one story home with one step to enter. She states prior to admission she was
independent with ambulation and adls. She states she does not have any DME in the home. She states she has a prescription plan and uses [facility]. The discharge plan is to return home with her spouse and grandchildren when medically
stable.
--- NOTE | 2024-03-13 17:20 | W.PN.UPDATE ---
Update Note
Progress Note Update
Reviewed CXR, there is a small left apical Ptx
I met with patient and her family to explain findings
She tells me she has no SOB, she feels some heaviness in chest at implant site, no change with deep inspirations.
Appears comfortable
RA Pulse Ox 92%
Not tachypneic
RRR, Nl S1 and S2, no S3 or S4, 1/6 AHSM, no rubs
Lungs are clear with good BS b/l
I recommended continued observational f/u and CXR in AM.
If she decompensates will move towards chest tube
[2024-03-13] MEDS: MELATONIN 5 MG PO (22:15)
[2024-03-14] VITALS (12 sets, daily range): BP systolic 60–186; BP diastolic 51–77; BMI 35.2
--- NOTE | 2024-03-14 03:19 | PTCARENOTE ---
Assumed care of the pt 1899. Pt AAOx3 V-paced on the monitor VSS. Left chest pacer site dressing c/d/i left arm sling in place elevated on pillow. Pt requested Melatonin for sleep. Heart Failure education booklet offered but pt states has booklet at
home.
[2024-03-14 05:30] LABS: Hematocrit 44.7 % (37.0-47.0); Hemoglobin 14.7 g/dL (12.0-16.0); Mean Corp Hgb Conc. 32.9 g/dL (33.0-37.0); Mean Corpuscular Hgb 32.2 pg (27.0-31.0); Mean Corpuscular Volume 97.8 fL (81.0-99.0); Mean Platelet Volume 10.7 fL (7.4-10.4); Platelet Count 240 10^3/uL (130-400); Red Blood Cell Count 4.57 10^6/uL (4.20-5.40); Red Cell Dist. Width 13.5 % (11.5-14.5); White Blood Cell Count 16.8 10^3/uL (4.8-10.8)
[2024-03-14 05:49] LABS: Blood Urea Nitrogen 23 mg/dl (7-17); Calcium 9.4 mg/dl (8.4-10.2); Carbon Dioxide 25 mmol/L (22-30); Chloride 105 mmol/L (98-107); Estimated Creatinine Clearance 70 ml/min; Glucose 123 mg/dl (70-99); Magnesium 2.3 mg/dl (1.6-2.3); Potassium 4.3 mmol/L (3.5-5.1); Sodium 140 mmol/L (135-145); eGFR > 60.00
[2024-03-14] MEDS: SYNTHROID 175 MCG PO (05:58)
[2024-03-14] MEDS: PAXIL 40 MG PO (07:38)
[2024-03-14] MEDS: LASIX 40 MG PO (07:38)
[2024-03-14] MEDS: FARXIGA 10 MG PO (07:38)
[2024-03-14] MEDS: LOW STRENGTH ASPIRIN 81 MG PO (07:39)
[2024-03-14] MEDS: ZESTRIL 5 MG PO (07:39)
[2024-03-14] MEDS: TOPROL XL 25 MG PO (07:39)
[2024-03-14] MEDS: STRIVERDI RESPIMAT 2 PUFF INH (08:06)
[2024-03-14] MEDS: SPIRIVA RESPIMAT 2.5 MCG 2 PUFF INH (08:06)
--- NOTE | 2024-03-14 09:04 | W.PN.CARDCBS ---
Addendum entered and electronically signed by Rizwan Diaz MD 03/14/24 15:36:
Patient seen, interviewed and examined by me.
Well-appearing, no acute distress
Regular rate and rhythm with normal S1 and S2, no S3 no S4. There is a grade 1/6 apical holosystolic murmur and no rubs. PMI is normally placed.
Lungs are clear to auscultation bilaterally without wheezes rales or rhonchi.
Abdomen soft nontender nondistended with normoactive bowel sounds
Extremities show trace pretibial edema bilaterally no clubbing or cyanosis.
Neurologic exam is grossly nonfocal.
Ptx has increased in size by CXR.
Minimal symptoms.
Given increased size, will consult IR for chest tube
Original Note:
Today's Communication / Plan
-
Consult IR for Chest tube placement
Impression / Plan
-
Primary Care Provider: Dr. Rizwan Dumas
Primary Dentist/Owner: Dr. David Warren
Impression:
Chronic HFrEF 20-25%
LBBB
post BiV ICD 03/13/24
post procedure Pneumothorax on CXR
Hyperlipidemia
Hypothyroidism
COPD
Anxiety
tobacco abuse
Plan:
post device site stable
CXR with apical PTX, repeat CXR this am with worsening PTX
consult IR for chest tube placement
sats low 90's on RA o/n, no acute distress, will place 02
Leucocytosis but received Decadron intraprocedurally, afebrile, will trend
tele AsVpaced
mild inc pain
HF continue GDMT (lisinopril,metoprolol succinate, empagliflozin, furosemide)
Activity restrictions reviewed
inc check 1 week
continue to monitor closely, serial CXR per IR
Progress Note - Dentist/Owner
Subjective
Date of Service: March 14, 2024
denies cp, sob, mild inc pain
Objective
Labs:
03/14/24 04:31
03/14/24 04:31
Labs
Hgb 14.7 g/dL (12.0-16.0) 03/14/24 04:31
Hct 44.7 % (37.0-47.0) 03/14/24 04:31
Plt Count 240 10^3/uL (130-400) 03/14/24 04:31
Sodium 140 mmol/L (135-145) 03/14/24 04:31
Potassium 4.3 mmol/L (3.5-5.1) 03/14/24 04:31
BUN 23 mg/dl (7-17) H 03/14/24 04:31
Creatinine 0.8 mg/dL (0.6-1.0) 03/14/24 04:31
Glucose 123 mg/dl (70-99) H 03/14/24 04:31
Vital Signs and I&O:
Vital Signs
Temp Pulse Resp BP Pulse Ox
98.0 F 65 14 155/70 92
03/14/24 08:00 03/14/24 08:15 03/14/24 08:15 03/14/24 04:18 03/14/24 08:15
Vital Signs
Temp Pulse Resp BP Pulse Ox
98.0 F 65 14 155/70 92
03/14/24 08:00 03/14/24 08:15 03/14/24 08:15 03/14/24 04:18 03/14/24 08:15
Intake & Output
03/12/24 03/13/24 03/14/24 03/15/24
06:59 06:59 06:59 06:59
Intake Total 960 / 960
Balance 960 / 960
Physical Exam
Physical Exam
NAD, AOX3
S1, S2, RRR
diminished ANABEL, CTA right
SNTND bsx4
L CW Dressing c/d/i, pressure dressing removed
--- NOTE | 2024-03-14 13:43 | CM ---
Reviewed chart. Met with Mrs. Mccray to review discharge plans. Reviewed VNA Services with her. At this time she is declining VNA Services. Prior to admission she resides with her spouse and two grandchildren in a one story home with one step to
enter. Prior to admission she was independent with ambulation and adls. She does not have any DME in the home. She has a prescription plan and uses [facility]. The discharge plan is to return home with her spouse and two grandchildren when
medically stable.
[2024-03-14] MEDS: TYLENOL 650 MG PO ×3 (14:56→23:55)
--- NOTE | 2024-03-14 17:35 | PTCARENOTE ---
Pt received at 1300 post left chest tube insertion. Chest tube to -20cm wall suctionas ordered. Pt on room air, sat 94%. Medicated with tylenol as ordered for pain with relief. Chest tube drained 2ml total.
[2024-03-14] MEDS: MELATONIN 5 MG PO (23:56)
--- NOTE | 2024-03-15 03:12 | PTCARENOTE ---
Assumed care of the pt @1900. AAOx3 V paced on the monitor. Left chest tube to -20 cm suction 0 output Tylenol given for pain.
[2024-03-15 05:13] VITALS: BP 150/51
[2024-03-15 05:26] VITALS: BMI 35.4
[2024-03-15] MEDS: SYNTHROID 175 MCG PO (05:31)
[2024-03-15 05:58] LABS: Hematocrit 41.1 % (37.0-47.0); Hemoglobin 13.7 g/dL (12.0-16.0); Mean Corp Hgb Conc. 33.3 g/dL (33.0-37.0); Mean Corpuscular Hgb 31.9 pg (27.0-31.0); Mean Corpuscular Volume 95.8 fL (81.0-99.0); Mean Platelet Volume 10.6 fL (7.4-10.4); Platelet Count 188 10^3/uL (130-400); Red Blood Cell Count 4.29 10^6/uL (4.20-5.40); Red Cell Dist. Width 13.6 % (11.5-14.5); White Blood Cell Count 10.3 10^3/uL (4.8-10.8)
[2024-03-15 06:01] LABS: Blood Urea Nitrogen 26 mg/dl (7-17); Calcium 8.7 mg/dl (8.4-10.2); Carbon Dioxide 27 mmol/L (22-30); Chloride 105 mmol/L (98-107); Estimated Creatinine Clearance 70 ml/min; Glucose 91 mg/dl (70-99); Potassium 4.1 mmol/L (3.5-5.1); Sodium 142 mmol/L (135-145); eGFR > 60.00
[2024-03-15] MEDS: SPIRIVA RESPIMAT 2.5 MCG 2 PUFF INH (07:18)
[2024-03-15] MEDS: STRIVERDI RESPIMAT 2 PUFF INH (07:18)
[2024-03-15 07:24] VITALS: BP 142/53
[2024-03-15] MEDS: FARXIGA 10 MG PO (08:42)
[2024-03-15] MEDS: LASIX 40 MG PO (08:42)
[2024-03-15] MEDS: PAXIL 40 MG PO (08:43)
[2024-03-15] MEDS: LOW STRENGTH ASPIRIN 81 MG PO (08:43)
[2024-03-15] MEDS: TOPROL XL 25 MG PO (08:43)
[2024-03-15] MEDS: ZESTRIL 5 MG PO (08:44)
--- NOTE | 2024-03-15 08:59 | W.PN.CARDCBS ---
Today's Communication / Plan
-
Clamp CT this am, repeat CXR afternoon if no PTX plan for IR to remove tube
Impression / Plan
-
Primary Care Provider: Dr. Rizwan Dumas
Primary Bat Lathe Operator: Dr. David Warren
Impression:
Chronic HFrEF 20-25%
LBBB
post BiV ICD 03/13/24
post procedure Pneumothorax on CXR
Hyperlipidemia
Hypothyroidism
COPD
Anxiety
tobacco abuse
Plan:
Chest tube placement yesterday for PTX post Biv ICD placement
f/u CXR this am resolved, will clamp tube now and repeat CXR at 12pm
mild pain at CT site
device site stable, no pain
Leucocytosis resolved
tele AsVpaced
HF continue GDMT (lisinopril,metoprolol succinate, empagliflozin, furosemide)
Activity restrictions reviewed
inc check 1 week
continue to monitor closely with CT clamped, unclamp if any respiratory distress
If f/u CXR remains with no PTX, plan to have IR remove tube
poss d/c home after with f/u CXR
Progress Note - Bat Lathe Operator
Subjective
Date of Service: March 15, 2024
denies cp, sob, mild CT site pain
Objective
Labs:
03/15/24 05:22
03/15/24 05:22
Labs
Hgb 13.7 g/dL (12.0-16.0) 03/15/24 05:22
Hct 41.1 % (37.0-47.0) 03/15/24 05:22
Plt Count 188 10^3/uL (130-400) D 03/15/24 05:22
Sodium 142 mmol/L (135-145) 03/15/24 05:22
Potassium 4.1 mmol/L (3.5-5.1) 03/15/24 05:22
BUN 26 mg/dl (7-17) H 03/15/24 05:22
Creatinine 0.8 mg/dL (0.6-1.0) 03/15/24 05:22
Glucose 91 mg/dl (70-99) 03/15/24 05:22
Vital Signs and I&O:
Vital Signs
Temp Pulse Resp BP Pulse Ox
98.3 F 62 18 142/53 96
03/15/24 07:22 03/15/24 07:45 03/15/24 07:22 03/15/24 07:24 03/15/24 07:22
Vital Signs
Temp Pulse Resp BP Pulse Ox
98.3 F 62 18 142/53 96
03/15/24 07:22 03/15/24 07:45 03/15/24 07:22 03/15/24 07:24 03/15/24 07:22
Intake & Output
03/13/24 03/14/24 03/15/24 03/16/24
06:59 06:59 06:59 06:59
Intake Total 960 / 960
Output Total 3 / 3
Balance 960 / 960 -3 / -3
Physical Exam
Physical Exam
NAD< AOx3
S1, s2, RRR
CTAB, non labored, no wheeze
SNTND bsx4
L CW inc c/d/i, no HT
L Chest tube site c/d/i -20cm suction, no air leak
--- NOTE | 2024-03-15 09:02 | PTCARENOTE ---
Assumed care of pt from night RN. Pt received awake and alert, Ox3. VSs, CM shows A/V Pacing 60-70's, POX 96% on RA. CT to left posterior thorax clamped per cards this am, repeat CXR ordered for 1230. She denies any pain or discomfort at this
time, will continue to monitor closely.
--- NOTE | 2024-03-15 10:20 | CM ---
Reviewed chart. Met with Mrs. Mccray to review discharge plans. She states she is feeling a little bit better. She states she is still planning on returning home with her spouse and grandchildren when ready for discharge. Prior to admission she
resides with her spouse and two grandchildren in a one story home with one step to enter. Prior to admission she was independent with ambulation and adls. She does not have any DME in the home. She has a prescription plan and uses [facility]. Medical work-up in progress. The discharge plan is to return home with her spouse and her grandchildren when medically stable.
[2024-03-15 11:22] VITALS: BP 145/69
--- NOTE | 2024-03-15 14:23 | PN.IRAD.UPD ---
Update Note - IRAD
- -
Left chest tube removed bedside per . Site cleaned and dressed with an occlusive dressing. Post CXR ordered.
[2024-03-15 15:40] VITALS: BP 151/59
--- NOTE | 2024-03-15 15:49 | W.DS.TRANS ---
DC Summary - Live Games Dealer
-
Discharge Instructions:
Sleep Apnea Risk Intermediate
Discharge Diagnosis/Procedures Bi-V ICD implant, Pneumothorax Chest tube
Diet Low Cholesterol
Driving Restrictions No driving for 1 week
Others Tests Chest Xray next Wednesday
Instructions: *DCA Heart Failure Instructions
Stand-Alone Forms: DC Inst - Implanted Device
Changes to Home Medications: No
Discharge Medications:
DC Medications w/original date entered in [facility]
aspirin 81 mg chewable tablet (Children's Aspirin) 81 mg PO DAILY #30 tabs 09/08/23
empagliflozin 10 mg tablet (Jardiance) 10 mg PO DAILY 30 days #30 tabs 09/08/23
furosemide 40 mg tablet 40 mg PO DAILY #30 tabs 09/08/23
levothyroxine 175 mcg tablet 175 mcg PO DAILY @ 0600 #30 tabs 09/08/23
glycopyrrolate 9 mcg-formoterol 4.8 mcg HFA aerosol inhaler (BevesTamecco Aerosphere) 2 puff inhalation BID Lung/Breathing Issues 03/13/24
lisinopril 5 mg tablet 5 mg PO DAILY Blood Pressure 03/13/24
metoprolol succinate 25 mg tablet,extended release 24 hr 25 mg PO DAILY Blood Pressure 03/13/24
ubvxnkkul-wlp-youc fumarate 18 mg-FA 600 mcg-vit K 40 mcg capsule (Multi For Her) 1 tab-cap PO DAILY Supplement 03/13/24
paroxetine HCl 20 mg tablet 40 mg PO DAILY Mental Health/Anxiety 03/13/24
Home Medication Changes
Pending Results: No
--- NOTE | 2024-03-15 16:48 | PTCARENOTE ---
All D/C info reviewed with pt, all questions answered. Pt D/C'd home with spouse.
--- NOTE | 2024-03-16 09:04 | W.HF.CON ---
Heart Failure
- LV Function
Left ventricular function study result: LV Ejection fraction </= 35%
Ejection Fraction Percentage: 20-25
- ARNI
Patient already on ARNI: No
Heart Failure ARNI Contraindication: Hypotension
- ACEI/ARB
Patient already on ACEI/ARB: Yes
- Beta Daphne
Patient already on Evidence Based Beta Daphne: Yes
- Mineralocorticord Receptor Antagonist
Patient already on MRA: No
Heart Failure MRA Contraindication: Hypotension
- SGLT-2 Inhibitor
Patient already on SGLT-2 Inhibitor: Yes
- NYHA CHF Classification
NYHA CHF Classification Level: Class II - Slight limitation by SOB and/or fatigue during mod exertion
- ACC/AHA Stage
ACC/AHA Stage: Stage C: Symptomatic Heart Failure
== END 2024-03-15 16:49 | disposition home or self-care (01) ==
LOC: CATH 07:37
PROVIDERS: Nurse Practitioner; Nurse Practitioner Adult Health; ATTENDING PHYSICIAN Internal Medicine Cardiovascular Disease; CONSULT PHYSICIAN Radiology Vascular & Interventional Radiology; FAMILY PHYSICIAN Family Medicine
DX: I50.22 Chronic systolic (congestive) heart failure (principal); I44.7 Left bundle-branch block, unspecified; I42.8 Other cardiomyopathies; I25.10 Atherosclerotic heart disease of native coronary artery without angina pectoris; E78.5 Hyperlipidemia, unspecified; E03.9 Hypothyroidism, unspecified; J44.9 Chronic obstructive pulmonary disease, unspecified; F41.9 Anxiety disorder, unspecified; F17.210 Nicotine dependence, cigarettes, uncomplicated; Z79.82 Long term (current) use of aspirin
CPT/HCPCS: 33249; C1887; 32557; 71045; 71046; 80048; 83735; 85027; 93005; 94640; 99152; C1729; C1769; C1882; C1892; C1898; Q9967

== ENCOUNTER → 2024-09-01 15:34 | Outpatient (REF) | payer OTHER, SELFPAY | LOC: DHSLP 15:34 | PROVIDERS: FAMILY PHYSICIAN Family Medicine | DX: G47.33 Obstructive sleep apnea (adult) (pediatric) (principal) | CPT/HCPCS: 95800 ==